=== PATIENT | female | born 1985 ===

== ENCOUNTER 2022-07-25 05:10 | Emergency (ER) | payer OTHER, SELFPAY ==
[2022-07-25 05:33] VITALS: BP 137/86; PULSE 83; RESP 18; TEMP 37.1; O2SAT 98; BMI 38.4
--- NOTE | 2022-07-25 08:05 | ED.GENADULT ---
HPI - General Adult General Chief complaint: General Medical Stated complaint: pressure in ears, hard to swallow, headache Time Seen by Provider: 07/25/22 08:05 Source: patient Mode of arrival: ambulatory Limitations: no limitations History of Present Illness HPI narrative: Patient is a 36 year old female presenting to the emergency department today with sinus pressure and a cough. Patient states that for the last week, she has felt generally unwell including sinus pressure and a cough. Patient denies any dizziness, lightheadedness, abdominal pain, nausea, vomiting, fever, chills, blurry vision, double vision, loss of vision, chest pain, difficulty breathing, shortness of breath, back pain, night sweats, pain with urination, increased urinary frequency, increased urinary urgency, blood in her urine or stool, syncope or a near syncopal episode, recent trauma or falls, bowel incontinence, bladder incontinence, bowel retention, bladder retention, or any other complaints at this time. Onset (ago): week(s) (1) Severity: mild Severity scale (1-10): 2 Relieving factors: none Exacerbating factors: none Associated symptoms: cough Treatments prior to arrival: none Related Data Previous Rx's Medication Instructions Recorded albuterol sulfate 90 mcg/actuation 1 inh inhalation Q6H PRN shortness 07/25/22 aerosol inhaler of breath or wheezing #6.7 grams doxycycline hyclate 100 mg tablet 100 mg PO BID 7 days #14 tabs 07/25/22 prednisone 20 mg tablet 20 mg PO DAILY 12 days #26 tabs 07/25/22 Allergies Allergy/AdvReac Type Severity Reaction Status Date / Time acetaminophen Allergy Unknown Verified 07/25/22 05:36 [From Excedrin Extra Strength] aspirin Allergy Unknown Verified 07/25/22 05:36 [From Excedrin Extra Strength] caffeine Allergy Unknown Verified 07/25/22 05:36 [From Excedrin Extra Strength] ibuprofen Allergy Unknown Verified 07/25/22 05:36 Review of Systems Constitutional: Constitutional: Reports no additional constitutional complaints, Denies chills, Denies fever(s) and Denies night sweats Eyes: Eyes: Reports no additional eye complaints, Denies blurry vision, Denies change in vision, Denies diplopia, Denies eye discharge, Denies loss of vision and Denies eye pain ENT: Denies dizziness and Reports sinus pressure Cardiovascular: Cardiovascular: Reports no additional cardiovascular complaints, Denies chest pain, Denies lightheadedness, Denies Loss of Consciousness and Denies dyspnea Respiratory: Respiratory: Reports no additional respiratory complaints, Reports cough and Denies dyspnea Gastrointestinal: Gastrointestinal: Reports no additional gastrointestinal complaints, Denies abdominal pain, Denies melena, Denies hematochezia, Denies change in bowel habits and Denies change in stool character Genitourinary: Genitourinary: Denies hematuria, Denies urinary frequency, Denies dysuria, Denies urinary incontinence, Denies urinary hesitancy and Denies urinary urgency Musculoskeletal: Musculoskeletal: Reports no additional musculoskeletal complaints, Denies numbness and Denies tingling Neurologic: Denies dizziness, Denies loss of vision, Denies numbness and Denies tingling Psychiatric: Psychiatric: Reports no additional psychiatric complaints Endocrine: Endocrine: Reports no additional endocrine complaints Hematologic/Lymphatic: Hematologic/Lymphatic: Reports no additional hematologic/lymphatic complaints Allergic/Immunologic: Allergic/Immunologic: Reports no additional allergic/immunologic complaints [facility] Past Medical History Attestation statement: The following information was validated with the patient. Source: old records reviewed Social History Social History Advance Directives: No Physical Exam ED Vital Signs: Vital Signs - 24 hr 07/25/22 05:33 Temperature 98.7 F Pulse Rate 83 Respiratory Rate 18 Blood Pressure 137/86 Pulse Oximetry 98 Oxygen Delivery Method Room Air BMI result Body Mass Index 38.4 Const General: cooperative, no acute distress, alert and awake Nutritional Appearance: well nourished Orientation/consciousness: patient oriented x3 Limitations: no limitations [facility] Head: Yes normal to inspection and Yes atraumatic Ears: hearing grossly normal bilaterally, external ears normal, TM normal on the right and TM normal on the left General nose exam: Normal external nose present, no nasal discharge noted and no epistaxis Face and sinus: Yes normal facial exam, No abrasion and No laceration Mouth: Normal oral and palatal mucosa present, no drooling and no muffled voice Eyes General: appearance normal, both eyes and all related structures Periorbital: periorbital findings normal Eyelids: Yes eyelids normal Conjunctivae: conjunctivae normal Pupils: Equal, round and reactive pupils present EOM: EOMs intact bilaterally Neck Neck: Yes normal visual inspection, Yes full ROM and Yes no lymphadenopathy Chest Chest palpation & inspection: normal inspection of the chest Resp Effort & Inspection: normal respiratory effort and able to speak in complete sentences Auscultation: clear to auscultation bilaterally Cardio Rate: regular rate Rhythm: regular rhythm GI Inspection: Yes normal to inspection Neuro General: patient oriented x3 and moves all extremities Cranial nerves: Yes Equal, round and reactive pupils present Cognition (Neuro): normal cognition Motor exam (neuro): 5/5 motor strength present throughout Sensory Exam: Normal double simultaneous stimulation for sensation Coordination: [id number] test normal Extrem General: Yes normal to inspection, Yes full ROM and Yes capillary refill normal Psych Appearance: grossly normal Mental Status: mental status grossly normal Affect: normal affect Attitude: cooperative Thought process: Normal thought process present Thought content: Normal thought content present Insight: Good insight present (Psych) Medical Decision Making MDM Narrative Medical decision making narrative: Patient is a 36 year old female presenting to the emergency department today with sinus pressure and cough. Patient's physical exam was unremarkable. I explained my physical exam findings to the patient. I answered all questions asked by the patient. I stressed the importance of the patient taking her medication as prescribed. I stressed the importance of the patient following up with her primary care provider. I stressed the importance of the patient returning to the emergency department immediately if her symptoms were to worsen or if she were to develop any dizziness, shortness of breath, difficulty breathing, chest pain, blurry vision, loss of vision, nausea, vomiting, abdominal pain, fever, chills, back pain, or any other complaints. Patient verbalized agreement and understanding with this treatment plan and discharge. Differential Diagnosis Differential Diagnosis: sinusitis Medical Records Medical records reviewed: Yes I reviewed the patient's medical records. Discharge Plan Discharge Clinical Impression: Sinusitis Patient Disposition: Home, Self-Care Instructions: Sinusitis (ED) Additional Instructions: Follow up with your primary care provider. Return to the emergency department immediately if your symptoms worsen or if you develop any dizziness, shortness of breath, difficulty breathing, chest pain, blurry vision, loss of vision, nausea, vomiting, abdominal pain, fever, chills, back pain, or any other complaints. Prescriptions: New doxycycline hyclate 100 mg tablet 100 mg PO BID 7 Days Qty: 14 0RF albuterol sulfate 90 mcg/actuation HFA aerosol inhaler 1 inh inhalation Q6H PRN (Reason: shortness of breath or wheezing) Qty: 6.7 0RF prednisone 20 mg tablet 20 mg PO DAILY 12 Days Qty: 26 0RF Rx Instructions: Take 3 tablets for 5 days THEN; Take 2 tablets for 4 days THEN; Take 1 tablet for 3 days Referrals: [facility] [Provider Group] (Call to establish and follow up with a primary care provider. If you already have a primary care provider, please follow up with them. ) [facility] [Provider Group] (Call to establish and follow up with a primary care provider. If you already have a primary care provider, please follow up with them. ) [facility] [Provider Group] (Call to establish and follow up with a primary care provider. If you already have a primary care provider, please follow up with them. ) Stand Alone Forms: Work/School Release Interventions: ED Discharge Assessment Last Done: 07/25/22 08:46 Discharge Date/Time: 07/25/22 08:47 Print Language: Ugandan
--- NOTE | 2022-07-25 08:45 | PC.NURSE ---
PT AMBULATORY INTO [facility] PT AWAKE, ALERT AND ORIENTED X 3. SKIN WARM AND DRY. RESP UNLABORED. SPEAKING IN FULL CLEAR SENTENCES. DENIES N/V. EVALUATED BY PROVIDER BHUMIKA. PLAN IS FOR DC HOME WITH MEDICATIONS. PT AWARE AND AGREEABLE TO PLAN
== END 2022-07-25 08:47 | disposition home or self-care (01) ==
PROVIDERS: Emergency Provider Emergency Medicine
DX: J32.9 Chronic sinusitis, unspecified (principal); R05.9 Cough, unspecified; Z79.899 Other long term (current) drug therapy
CPT/HCPCS: 99282; 99283

== ENCOUNTER 2022-09-18 01:21 | Emergency (ER) | payer OTHER, SELFPAY ==
[2022-09-18 01:30] VITALS: BP 117/80; PULSE 69; RESP 16; TEMP 36.6; O2SAT 98; BMI 38.4
--- NOTE | 2022-09-18 06:06 | ED.EXTPRO ---
HPI - Extremity Problem General Chief complaint: Extremity Problem Stated complaint: right ring finger pain Time Seen by Provider: 09/18/22 04:21 Source: patient Mode of arrival: ambulatory History of Present Illness HPI Narrative: 36-year-old female presents with worsening pain, redness, swelling to the right ring finger her hand this atraumatic. Related Data Previous Rx's Medication Instructions Recorded albuterol sulfate 90 mcg/actuation 1 inh inhalation Q6H PRN shortness 07/25/22 aerosol inhaler of breath or wheezing #6.7 grams doxycycline hyclate 100 mg tablet 100 mg PO BID 7 days #14 tabs 07/25/22 prednisone 20 mg tablet 20 mg PO DAILY 12 days #26 tabs 07/25/22 Allergies Allergy/AdvReac Type Severity Reaction Status Date / Time acetaminophen Allergy Swelling Verified 09/18/22 01:30 [From Excedrin Migraine] aspirin Allergy Swelling Verified 09/18/22 01:30 [From Excedrin Migraine] caffeine Allergy Swelling Verified 09/18/22 01:30 [From Excedrin Migraine] ibuprofen Allergy Swelling Verified 09/18/22 04:23 Review of Systems Review of Systems: Pertinent positives and negatives as stated in HPI 10 point review of systems is otherwise negative. PMFSH Past Medical History Source: nursing notes reviewed Social History Social History Advance Directives: No Physical Exam Vital Signs: Vital Signs: Last Vital Signs Temp 97.9 F 09/18/22 01:30 Pulse 69 09/18/22 01:30 Resp 16 09/18/22 01:30 BP 117/80 09/18/22 01:30 Pulse Ox 98 09/18/22 01:30 O2 Del Method 09/18/22 01:30 BMI result Body Mass Index 38.4 VITAL SIGNS: Reviewed. GENERAL: Well developed, well nourished, in no acute distress. HEAD: Normocephalic/atraumatic EYES: PERRLA, EOMI EARS: Ext canals without abnormality OROPHARYNX: no oral lesions noted, posterior pharynx clear LUNGS: Normal breath sounds. No adventitious sounds or accessory muscle use. SpO2<98> CARDIOVASCULAR: Regular rate and rhythm without noted murmurs ABDOMEN: Soft, non-tender, non-distended with bowel sounds. MUSCULOSKELETAL: No tenderness, deformities, or effusions noted on gross inspection. EXTREMITIES: No cyanosis, clubbing or edema; RIGHT RING FINGER: Swelling and redness around the nail bed SKIN: Inspection of the skin reveals no rashes NEUROLOGIC: Alert and oriented x 4. Strength and sensation to light touch were grossly intact x 4. Course Course Course Narrative: 36-year-old female with history and clinical presentation consistent with paronychia of the right ring finger. Incision and drainage completed with good expression purulence substance. Patient was then discharged home in stable condition with instructions to use Epsom salts twice a day for the next 2-3 days. Procedures Abscess I/D Site: upper extremity Side (if applicable): right Local Anesthetic: lidocaine 1% Amount of anesthesia used (mL): 6 Technique: incised with blade Amount of fluid expressed (mL): 1 Sent for culture/gram staining?: No Irrigation: No Packing used?: none Complications: pain Discharge Plan Discharge Clinical Impression: Paronychia Patient Disposition: Home, Self-Care Instructions: Paronychia (ED) Additional Instructions: 1. Recommend [id number] Tylenol/ibuprofen as needed for pain control. 2. Recommend soaking your finger in Epsom salt with warm water twice daily for the next 2-3 days. 3. Follow-up with your primary care provider for re-evaluation. Return to the ER for worsening symptoms. Prescriptions: No Action doxycycline hyclate 100 mg tablet 100 mg PO BID 7 Days Qty: 14 0RF albuterol sulfate 90 mcg/actuation HFA aerosol inhaler 1 inh inhalation Q6H PRN (Reason: shortness of breath or wheezing) Qty: 6.7 0RF prednisone 20 mg tablet 20 mg PO DAILY 12 Days Qty: 26 0RF Rx Instructions: Take 3 tablets for 5 days THEN; Take 2 tablets for 4 days THEN; Take 1 tablet for 3 days
[2022-09-18] MEDS: Lidocaine HCl 2 % MPF 5 ML VIAL SUBCUT (06:30)
== END 2022-09-18 06:33 | disposition home or self-care (01) ==
PROVIDERS: Emergency Provider Student in an Organized Health Care Education/Training Program
DX: L03.011 Cellulitis of right finger (principal); M79.644 Pain in right finger(s)
CPT/HCPCS: 10060; 99282; 99284

== ENCOUNTER 2023-04-05 17:14 | Emergency (ER) | payer OTHER, SELFPAY ==
[2023-04-05 19:33] VITALS: BP 154/91; PULSE 79; RESP 16; TEMP 36.4; O2SAT 100; BMI 38.4
--- NOTE | 2023-04-05 19:35 | ED.GENADULT ---
HPI - General Adult General Chief complaint: General Medical Stated complaint: numbness,rafiq right arm Time Seen by Provider: 04/05/23 22:15 Source: patient Mode of arrival: ambulatory Limitations: no limitations History of Present Illness HPI narrative: Patient with history of hypothyroidism used to be on 100 mcg on levothyroxine but her PCP decrease the dose to 70 mcgincreased to 88 Mcg last week now complaining of tingling sensation numbness weakness last few days no dizziness no chest pain or shortness of breath no syncope, feels anxious no weight gain or constipation Related Data Previous Rx's Medication Instructions Recorded albuterol sulfate 90 mcg/actuation 1 inh inhalation Q6H PRN shortness 07/25/22 aerosol inhaler of breath or wheezing #6.7 grams doxycycline hyclate 100 mg tablet 100 mg PO BID 7 days #14 tabs 07/25/22 prednisone 20 mg tablet 20 mg PO DAILY 12 days #26 tabs 07/25/22 levothyroxine 100 mcg capsule 100 mcg PO DAILY #90 caps 04/05/23 Allergies Allergy/AdvReac Type Severity Reaction Status Date / Time acetaminophen Allergy Swelling Verified 04/05/23 19:40 [From Excedrin Migraine] aspirin Allergy Swelling Verified 04/05/23 19:40 [From Excedrin Migraine] caffeine Allergy Swelling Verified 04/05/23 19:40 [From Excedrin Migraine] ibuprofen Allergy Swelling Verified 04/05/23 19:40 Review of Systems Review of Systems: Yes all other systems are reviewed and are negative [facility] Social History Social History Alcohol intake: never Smoked in Last 30 Days: No Use of substances other than those prescribed or required for medical reasons: No Advance Directives: No Advance Directives Information Provided: No Patient : No Physical Exam ED Vital Signs: Vital Signs - 24 hr 04/05/23 19:33 Temperature 97.6 F Pulse Rate 79 Respiratory Rate 16 Blood Pressure 154/91 H Pulse Oximetry 100 Oxygen Delivery Method Room Air BMI result Body Mass Index 38.4 Appearance: Alert. Oriented X3. No acute distress. Eyes: PERRLA, No Nystagmus ENT: Pharynx normal. Oral Mucosa moist Neck: Normal inspection. Neck supple. Thyroid not palpable CVS: Normal heart rate and rhythm. Pulses normal. Respiratory: No respiratory distress. Equal air entry bilateral, no wheezing/rales/rhonchi Abdomen: Soft and nontender. Bowel sounds are present, no mass palpable, no CVA tenderness Skin: Skin warm and dry. Normal skin color. Normal skin turgor. Extremities: No lower extremity edema. No calf tenderness Neuro: Oriented X 3. No motor deficit. No sensory deficit.No cerebellar signs , cranial nerves II-XII intact Course Course Course Narrative: This is an RME: Additional HPI, ROS, PE not included below will be deferred to primary provider. This is a [id number]-[id number]-female, with a history of hypothyroidism, presenting to the emergency department with a complaint of numbness in her toes in her right foot x 2 days and right arm numbness/tingling since today. No trauma or injury. States that the numbness and tingling down her right arm is intermittent. Recent increase in levothyroxine last week from 70mcg to 88mcg QD.No dizziness, chest pain, shortness of breath, abdominal pain, nausea, vomiting or diarrhea. Plan: Labs ordered. Medical Decision Making Medical Decision Making [facility] Narrative: Patient with hypothyroidism with elevated TSH and low FT 4 will increase the dose of levothyroxine to 100 mcg which patient used to take in the past advised to follow with PCP/endocrinology Lab Data MDM Lab Attestation statement: I reviewed the patient's lab results. 04/05/23 20:17 04/05/23 20:17 Labs: Lab Results 04/05/23 04/05/23 Range/Units 20:17 20:17 WBC 12.9 H (4.8-10.8) X10*3/uL RBC 4.57 (4.20-5.50) X10*6/uL Hgb 13.0 (12.0-16.0) g/dl Hct 40.3 (37.0-47.0) % MCV 88.2 (80.0-98.0) fL MCH 28.4 (27.0-33.0) pg MCHC 32.3 (31.0-35.0) g/dl RDW 15.9 (11.0-16.0) % Plt Count 344 (160-400) X10*3/uL MPV 9.1 L (9.4-12.3) fL Immature Gran % (Auto) 0.5 H (0.0-0.4) % Neut % (Auto) 63.6 (45-73) % Lymph % (Auto) 26.4 (20-40) % [place] % (Auto) 6.1 (2-11) % Eos % (Auto) 3.2 (0-4) % Baso % (Auto) 0.2 (0-2) % Lymph # (Auto) 3.4 (1.2-4.9) X10*3/uL [place] # (Auto) 0.8 (0.1-1.2) X10*3/uL Eos # (Auto) 0.4 (0.0-0.4) X10*3/uL Baso # (Auto) 0.0 (0.0-0.2) X10*3/uL Abs Immat Gran (auto) 0.07 H (0.00-0.03) X10*3/uL Absolute Neuts (auto) 8.2 (2.0-8.3) x10*3/uL Absolute Nucleated RBC 0.000 (0.0-0.012) X10*3/uL Nucleated RBC % (auto) 0.0 (0.0-0.2) /100WBC Sodium 139 (135-145) mmol/L Potassium 3.6 (3.3-5.1) mmol/L Chloride 103 (96-108) mmol/L Carbon Dioxide 28 (22-29) mmol/L Anion Gap 12 (12-20) BUN 13 (9-16) mg/dL Creatinine 0.74 (0.5-1.4) mg/dL Estim Creat Clear Calc 111.9 Estimated GFR > 60 Random Glucose 117 H (60-115) mg/dL Calcium 9.8 (8.4-10.2) mg/dL Magnesium 1.8 (1.6-2.6) mg/dL Total Bilirubin 0.2 (0.0-1.0) mg/dL Direct Bilirubin < 0.2 (0.0-0.5) mg/dL AST 13 (5-31) U/L ALT 12 (0-31) U/L Alkaline Phosphatase 61 (39-117) U/L Total Protein 7.3 (6.5-8.0) g/dL Albumin 4.2 (3.5-5.0) g/dL Lipase 20 (8-78) U/L TSH 33.55 H (0.32-4.0) uIU/mL Free T4 0.64 L (0.71-1.85) ng/dL Discharge Plan Discharge Clinical Impression: Paresthesia, Hypothyroidism Patient Disposition: Home, Self-Care Instructions: Hypothyroidism (ED), Paresthesia (ED) Additional Instructions: Continue your medications Cause of numbness is not clear Increase the dose of levothyroxine 100 mcg as your taking before and follow-up with senior process engineer/PCP Follow up with neurologist Prescriptions: New levothyroxine 100 mcg capsule 100 mcg PO DAILY Qty: 90 0RF No Action doxycycline hyclate 100 mg tablet 100 mg PO BID 7 Days Qty: 14 0RF albuterol sulfate 90 mcg/actuation HFA aerosol inhaler 1 inh inhalation Q6H PRN (Reason: shortness of breath or wheezing) Qty: 6.7 0RF prednisone 20 mg tablet 20 mg PO DAILY 12 Days Qty: 26 0RF Rx Instructions: Take 3 tablets for 5 days THEN; Take 2 tablets for 4 days THEN; Take 1 tablet for 3 days Referrals: Hugo Moya MD [Physician] - 1 week Interventions: ED Discharge Assessment Last Done: 04/05/23 22:49 Discharge Date/Time: 04/05/23 22:52
[2023-04-05 20:00] VITALS: O2SAT 100
[2023-04-05 20:21] LABS: MANUAL DIFF FLAG NO
[2023-04-05 20:23] LABS: Basophils Percent Auto 0.2 % (0-2); Eosinophils Absolute Auto 0.4 X10*3/uL (0.0-0.4); Eosinophils Percent Auto 3.2 % (0-4); Hematocrit 40.3 % (37.0-47.0); Imm Gran Abs Auto 0.07 X10*3/uL (0.00-0.03); Imm Gran Pct Auto 0.5 % (0.0-0.4); Lymphocytes Absolute Auto 3.4 X10*3/uL (1.2-4.9); Lymphocytes Percent Auto 26.4 % (20-40); Mean Corpuscular HGB Conc 32.3 g/dl (31.0-35.0); Mean Corpuscular Hemoglobin 28.4 pg (27.0-33.0); Mean Corpuscular Volume 88.2 fL (80.0-98.0); Mean Platelet Volume 9.1 fL (9.4-12.3); Monocytes Absolute Auto 0.8 X10*3/uL (0.1-1.2); Monocytes Percent Auto 6.1 % (2-11); Neutrophils Absolute Auto 8.2 x10*3/uL (2.0-8.3); Neutrophils Percent Auto 63.6 % (45-73); Platelet Count 344 X10*3/uL (160-400); Red Blood Count 4.57 X10*6/uL (4.20-5.50); Red Cell Distribution Width 15.9 % (11.0-16.0); White Blood Count 12.9 X10*3/uL (4.8-10.8)
[2023-04-05 20:51] LABS: Alanine Aminotransferase 12 U/L (0-31); Albumin Level 4.2 g/dL (3.5-5.0); Alkaline Phosphatase 61 U/L (39-117); Anion Gap 12 (12-20); Aspartate Amino Transferase 13 U/L (5-31); Bilirubin Direct < 0.2 mg/dL (0.0-0.5); Bilirubin Total 0.2 mg/dL (0.0-1.0); Blood Urea Nitrogen 13 mg/dL (9-16); Calcium 9.8 mg/dL (8.4-10.2); Carbon Dioxide 28 mmol/L (22-29); Chloride 103 mmol/L (96-108); Creatinine Clr Calc Pharmacy 111.9; Estimated Glomerular Filt Rate > 60; Glucose Random 117 mg/dL (60-115); Lipase 20 U/L (8-78); Magnesium 1.8 mg/dL (1.6-2.6); Potassium 3.6 mmol/L (3.3-5.1); Sodium 139 mmol/L (135-145); Total Protein 7.3 g/dL (6.5-8.0)
[2023-04-05 21:06] LABS: TSH reflex Free T4 33.55 uIU/mL (0.32-4.0)
[2023-04-05 21:36] LABS: Free T4 (Free Thyroxine) 0.64 ng/dL (0.71-1.85)
== END 2023-04-05 22:52 | disposition home or self-care (01) ==
PROVIDERS: Physician Assistant Medical; Emergency Provider Internal Medicine
DX: R20.2 Paresthesia of skin (principal); E03.9 Hypothyroidism, unspecified; Z79.899 Other long term (current) drug therapy
CPT/HCPCS: 36415; 80048; 80076; 83690; 83735; 84439; 84443; 85025; 99283; 99284

== ENCOUNTER 2024-08-13 10:00 | Emergency (ER) | payer OTHER, SELFPAY ==
[2024-08-13 10:09] VITALS: BP 117/77; PULSE 80; RESP 16; TEMP 37; O2SAT 97; BMI 40.6
[2024-08-13 10:37] LABS: MANUAL DIFF FLAG NO
[2024-08-13 10:39] LABS: Basophils Percent Auto 0.3 % (0-2); Eosinophils Absolute Auto 0.4 X10*3/uL (0.0-0.4); Eosinophils Percent Auto 3.2 % (0-4); Hematocrit 38.9 % (37.0-47.0); Hemoglobin 12.5 g/dl (12.0-16.0); Imm Gran Abs Auto 0.06 X10*3/uL (0.00-0.03); Imm Gran Pct Auto 0.5 % (0.0-0.4); Lymphocytes Absolute Auto 2.8 X10*3/uL (1.2-4.9); Lymphocytes Percent Auto 22.7 % (20-40); Mean Corpuscular HGB Conc 32.1 g/dl (31.0-35.0); Mean Corpuscular Hemoglobin 28.3 pg (27.0-33.0); Mean Platelet Volume 9.1 fL (9.4-12.3); Monocytes Absolute Auto 0.7 X10*3/uL (0.1-1.2); Monocytes Percent Auto 5.5 % (2-11); Neutrophils Absolute Auto 8.4 x10*3/uL (2.0-8.3); Neutrophils Percent Auto 67.8 % (45-73); Platelet Count 373 X10*3/uL (160-400); Red Blood Count 4.42 X10*6/uL (4.20-5.50); Red Cell Distribution Width 16.8 % (11.0-16.0); White Blood Count 12.4 X10*3/uL (4.8-10.8)
[2024-08-13 11:07] LABS: Anion Gap 10 (12-20); Blood Urea Nitrogen 15 mg/dL (9-16); Calcium 9.5 mg/dL (8.4-10.2); Carbon Dioxide 22 mmol/L (22-29); Chloride 110 mmol/L (96-108); Creatinine Clr Calc Pharmacy 107.1; Estimated Glomerular Filt Rate > 60; Glucose Random 124 mg/dL (60-115); Sodium 138 mmol/L (135-145)
[2024-08-13 11:23] LABS: TSH reflex Free T4 39.02 uIU/mL (0.32-4.0)
[2024-08-13 11:24] LABS: Thyroid Stimulating Hormone 39.35 uIU/mL (0.32-4.0)
[2024-08-13 12:17] LABS: Free T4 (Free Thyroxine) 0.44 ng/dL (0.71-1.85)
--- NOTE | 2024-08-13 13:04 | ED.GENADULT ---
HPI - General Adult General Chief complaint: General Medical Stated complaint: thyroid problem Time Seen by Provider: 08/13/24 13:01 Source: patient Mode of arrival: ambulatory Limitations: no limitations History of Present Illness ED Provider: Ab VALENTINE HPI narrative: 38-year-old female with history of hypothyroidism presents to the ED because she has been without her Synthroid medication for 5 months due to insurance issues. Patient has appointment with primary care provider next week. Patient states fatigue and feeling cold. Patient denies any chest pain or shortness of breath, abdominal pain, diarrhea, dizziness, slurred speech, facial droop, neck pain, or genitourinary symptoms. Related Data Previous Rx's ?Medication ?Instructions ?Recorded albuterol sulfate 90 mcg/actuation 1 inh inhalation Q6H PRN shortness 07/25/22 aerosol inhaler of breath or wheezing #6.7 grams doxycycline hyclate 100 mg tablet 100 mg PO BID 7 days #14 tabs 07/25/22 prednisone 20 mg tablet 20 mg PO DAILY 12 days #26 tabs 07/25/22 levothyroxine 100 mcg capsule 100 mcg PO DAILY #90 caps 04/05/23 levothyroxine 100 mcg tablet 100 mcg PO DAILY 30 days #30 tabs 08/13/24 (Synthroid) Allergies Allergy/AdvReac Type Severity Reaction Status Date / Time acetaminophen Allergy Swelling Verified 08/13/24 10:11 [From Excedrin Migraine] aspirin Allergy Swelling Verified 08/13/24 10:11 [From Excedrin Migraine] caffeine Allergy Swelling Verified 08/13/24 10:11 [From Excedrin Migraine] ibuprofen Allergy Swelling Verified 08/13/24 10:11 Review of Systems Review of Systems: fatigue Yes all other systems are reviewed and are negative [facility] Social History Social History Alcohol intake: never Advance Directives: No Physical Exam ED Vital Signs: Vital Signs - 24 hr 08/13/24 10:09 Temperature 98.6 F Pulse Rate 80 Respiratory Rate 16 Blood Pressure 117/77 Pulse Oximetry 97 Oxygen Delivery Method Room Air BMI result Body Mass Index 40.6 Const General: cooperative, healthy appearing, comfortable, no acute distress, well developed, alert, awake and Physically active Orientation/consciousness: patient oriented x3 HENMT Head: Yes normal to inspection, Yes No palpable skull fracture present, Yes normocephalic, Yes atraumatic and No abrasion Throat: Yes posterior oropharynx normal, Yes tonsils normal and Yes uvula midline Eyes General: appearance normal, both eyes and all related structures Neck Neck: Yes normal visual inspection, Yes full ROM, Yes no lymphadenopathy, Yes no meningeal signs, Yes trachea midline, Yes supple, No anterior neck swelling and No tender Chest Chest palpation & inspection: normal inspection of the chest and normal palpation of entire chest wall Resp Effort & Inspection: normal respiratory effort and able to speak in complete sentences Auscultation: clear to auscultation bilaterally Cardio Jugular venous distension: no JVD Heart sounds: S1 normal heart sound present and S2 normal heart sound present GI Inspection: Yes normal to inspection Palpation (GI): Soft to palpation, not firm, nontender, no guarding and not rigid General: Yes no CVA tenderness Back/Spine/Pelvis Back: no CVA tenderness and No back tenderness Skin General skin exam: no rashes or lesions noted, elasticity normal and turgor normal Neuro General: patient oriented x3, gait normal, tone normal, moves all extremities, Normal light touch and pain sensation, no meningeal signs, no focal motor deficits, CN's II-XI intact bilaterally and normal sensation to monofilament Extrem General: Yes normal to inspection, Yes full ROM and Yes capillary refill normal Psych Appearance: grossly normal, well kempt and not disheveled Medical Decision Making Medical Decision Making MDM Narrative: 38-year-old female presents to ED for requesting Synthroid medication for hypothyroidism. Patient has been without it for 5 months due to insurance issues. Patient states feeling fatigued which is contributed to hypothyroidism. Labs indicates hypothyroidism which can lead to fatigue. Rest of labs are normal. Patient well-appearing. Physical exam benign. Patient was prescribed Synthroid and given copy of lab work. Patient has follow-up with primary care provider next week. Patient has explaiend worrisome signs and informed to return to the ED immediately. Not suspecting stroke. NIH score of 0. Not suspecting myocardial infarction, PE, sepsis, pericarditis, rhabdomyolysis, dehydration, WILLIAM, DKA, or . Not suspecting any life-threatening etiology. Differential Diagnosis Differential Diagnoses: The differential diagnosis associated with the presentation includes (Hypothyroidism, anemia) Admission/Observation Consideration of admission/observation: Escalation of care including admission/observation considered Lab Data MDM Lab Attestation statement: I reviewed the patient's lab results. 08/13/24 10:32 08/13/24 10:32 Labs: Lab Results 08/13/24 08/13/24 Range/Units 10:32 10:32 WBC 12.4 H (4.8-10.8) X10*3/uL RBC 4.42 (4.20-5.50) X10*6/uL Hgb 12.5 (12.0-16.0) g/dl Hct 38.9 (37.0-47.0) % MCV 88.0 (80.0-98.0) fL MCH 28.3 (27.0-33.0) pg MCHC 32.1 (31.0-35.0) g/dl RDW 16.8 H (11.0-16.0) % Plt Count 373 (160-400) X10*3/uL MPV 9.1 L (9.4-12.3) fL Immature Gran % (Auto) 0.5 H (0.0-0.4) % Neut % (Auto) 67.8 (45-73) % Lymph % (Auto) 22.7 (20-40) % [place] % (Auto) 5.5 (2-11) % Eos % (Auto) 3.2 (0-4) % Baso % (Auto) 0.3 (0-2) % Lymph # (Auto) 2.8 (1.2-4.9) X10*3/uL [place] # (Auto) 0.7 (0.1-1.2) X10*3/uL Eos # (Auto) 0.4 (0.0-0.4) X10*3/uL Baso # (Auto) 0.0 (0.0-0.2) X10*3/uL Abs Immat Gran (auto) 0.06 H (0.00-0.03) X10*3/uL Absolute Neuts (auto) 8.4 H (2.0-8.3) x10*3/uL Absolute Nucleated RBC 0.000 (0.0-0.012) X10*3/uL Nucleated RBC % (auto) 0.0 (0.0-0.2) /100WBC Sodium 138 (135-145) mmol/L Potassium 4.0 (3.3-5.1) mmol/L Chloride 110 H (96-108) mmol/L Carbon Dioxide 22 (22-29) mmol/L Anion Gap 10 L (12-20) BUN 15 (9-16) mg/dL Creatinine 0.79 (0.5-1.4) mg/dL Estim Creat Clear Calc 107.1 Estimated GFR > 60 Random Glucose 124 H (60-115) mg/dL Calcium 9.5 (8.4-10.2) mg/dL TSH 39.35 H 39.02 H (0.32-4.0) uIU/mL Free T4 0.44 L (0.71-1.85) ng/dL Beta HCG, Quant < 2 mIU/mL Independent Historian Clinical information obtained from an independent historian. History obtained from or confirmed by: Other (Prior vistis) External Record Review External record reviewed: Other (Patient) Prescription Management I considered prescription management with: Other (Synthroid) Discharge Plan Discharge Clinical Impression: Hypothyroidism Patient Disposition: Home, Self-Care Instructions: Hypothyroidism (ED) Additional Instructions: Recommend follow-up with primary care provider. Call your primary care provider for earlier appointment. Return to the ED immediately for any abdominal pain, nausea, vomiting, fever, chills, lethargy, chest pain, shortness of breath, or any other concerning symptoms. Test Result Flag Reference Sodium 138 135-145 mmol/L Potassium 4.0 3.3-5.1 mmol/L CL 110 H 96-108 mmol/L CO2 22 22-29 mmol/L Gap 10 L 12-20 BUN 15 9-16 mg/dL Creat 0.79 0.5-1.4 mg/dL Estimated CrCl 107.1 Provided height and weight: 157.48 cm, 100.6 kg. eGFR (calculated from the MDRD study equation) and eCrCl (calculated from the Cockcroft-Gault equation) are based on different parameters and may not yield comparable results. If eCrCl result is absurd, please check patient's height/weight. EGFR > 60 NOTE: For -[place] Citizen individuals, multiply the result by 1.210. Chronic Kidney Disease: Estimated GFR < 60 mL/min/1.73m2 Severe Kidney Disease: Estimated GFR < 15 mL/min/1.73m2 Glucose, Random 124 H 60-115 mg/dL CA 9.5 8.4-10.2 mg/dL TSH 3rd Gen. 39.35 H 0.32-4.0 uIU/mL Note: A sustained TSH level above 2.5 uIU/mL may warrant further investigation. TSH 3rd Generation ([facility]) Test Result Flag Reference WBC 12.4 H 4.8-10.8 X10*3/uL RBC 4.42 4.20-5.50 X10*6/uL HGB 12.5 12.0-16.0 g/dl HCT 38.9 37.0-47.0 % MCV 88.0 80.0-98.0 fL MCH 28.3 27.0-33.0 pg MCHC 32.1 31.0-35.0 g/dl RDW 16.8 H 11.0-16.0 % PLT 373 160-400 X10*3/uL MPV 9.1 L 9.4-12.3 fL Neut Pct Auto 67.8 45-73 % ImGran Pct Auto 0.5 H 0.0-0.4 % Lymp Pct Auto 22.7 20-40 % [place] Pct Auto 5.5 2-11 % Eos Pct Auto 3.2 0-4 % Baso Pct Auto 0.3 0-2 % NRBC Pct Auto 0.0 0.0-0.2 /100WBC ANC Neut Abs # 8.4 H 2.0-8.3 x10*3/uL ImGran Abs Auto 0.06 H 0.00-0.03 X10*3/uL Lymph Abs Auto 2.8 1.2-4.9 X10*3/uL [place] Abs Auto 0.7 0.1-1.2 X10*3/uL Eos Abs Auto 0.4 0.0-0.4 X10*3/uL Baso Abs Auto 0.0 0.0-0.2 X10*3/uL NRBC Abs Auto 0.000 0.0-0.012 X10*3/uL END OF REPORT Prescriptions: New levothyroxine [Synthroid] 100 mcg tablet 100 mcg PO DAILY 30 Days Qty: 30 0RF No Action doxycycline hyclate 100 mg tablet 100 mg PO BID 7 Days Qty: 14 0RF albuterol sulfate 90 mcg/actuation HFA aerosol inhaler 1 inh inhalation Q6H PRN (Reason: shortness of breath or wheezing) Qty: 6.7 0RF prednisone 20 mg tablet 20 mg PO DAILY 12 Days Qty: 26 0RF Rx Instructions: Take 3 tablets for 5 days THEN; Take 2 tablets for 4 days THEN; Take 1 tablet for 3 days levothyroxine 100 mcg capsule 100 mcg PO DAILY Qty: 90 0RF Discharge Date/Time: 08/13/24 13:32 Print Language: Palauan
[2024-08-13 13:30] LABS: HCG Quantitative < 2 mIU/mL
[2024-08-15 03:23] LABS: Triiodothyronine T3 Total 63 ng/dL (76-181)
== END 2024-08-13 13:32 | disposition home or self-care (01) ==
PROVIDERS: Physician Assistant; Emergency Provider Emergency Medicine
DX: E03.9 Hypothyroidism, unspecified (principal)
CPT/HCPCS: 36415; 80048; 84439; 84443; 84480; 84702; 85025; 99281; 99283

== ENCOUNTER 2024-08-21 10:48 | Outpatient (AMB) | payer MEDICAID, SELFPAY ==
--- NOTE | 2024-08-21 11:42 | A.OFFPC_ITS ---
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 Both ears are clogged. Chest tightness the past two days. Design Editor Required: No Allergies acetaminophen [From Excedrin Migraine] Allergy (Verified 08/21/24 11:43) Swelling aspirin [From Excedrin Migraine] Allergy (Verified 08/21/24 11:43) Swelling caffeine [From Excedrin Migraine] Allergy (Verified 08/21/24 11:43) Swelling ibuprofen Allergy (Verified 08/21/24 11:43) Swelling Medication List - Last Reconciled 08/21/24 by Yuliya Foy PA-C albuterol sulfate 90 mcg/actuation 1 inh inhalation Q6H PRN levothyroxine (Synthroid) 100 mcg PO DAILY 30 days Tobacco use date assessed: 08/21/24 Dental Screening Dental Screen Date: 08/21/24 Did you have a dental visit in the last 12 months?: Yes Did you have a dental problem in the last 6 months where you did not have access to dental care?: No Was dental information given to patient?: Patient has dentist HPI 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 Endo: She is currently on levothyroxine 100 mcg. She just restarted this 4 days ago after being off of this for many months. Musculoskeletal: States that since 2019 she has dealt with some ankle pain and instability following sprained ankles. 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 She has had imaging in the past and states that it was negative for any fractures. She would like to do physical therapy to help strength in upper ankles. She also has been experiencing some intermittent knee pain for the last few years. She states that she wants to get back to working out but would like to see someone in regards to strengthening her knee and had her start working out again. PULM: Does report today that her asthma feels a bit exacerbated since she has been sick. She has been sick with right ear pain, sinus pain and pressure for the last week or so. For the last 2 days she has had increased discomfort in the right ear with decreased hearing. She can still hear out of it but does note that it was diminished. No fevers or chills. She is on a maintenance inhaler but does not have a rescue inhaler. She has never been hospitalized or intubated for asthma. 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 1. Little interest or pleasure in doing things: nearly every day 2. Feeling down, depressed, or hopeless: several days 3. Trouble falling or staying asleep, or sleeping too much: nearly every day 4. Feeling tired or having little energy: nearly every day 5. Poor appetite or overeating: more than half the days 6. Feeling bad about yourself - or that you are a failure or have let yourself or your family down: several days 7. Trouble concentrating on things, such as reading the newspaper or watching television: nearly every day 8. Moving or speaking so slowly that other people could have noticed. Or the opposite - being so fidgety or restless that you have been moving around a lot more than usual: nearly every day 9. Thoughts that you would be better off or of hurting yourself in some way: not at all Total score: 19 Source: Developed by Drs. Candido Perdue, Rosetta Justin, Luca Bright and colleagues, with an educational domitila from [employer]. Thrive Questionnaire I am a: Patient What is your living situation today?: I have a steady place to live Within the past 12 months, did the food you bought not last and you didn't have the money to get more?: Never true Within the past 12 months, did you worry whether your food would run out before you got money to buy more?: Never true Do you have trouble paying for medicines?: No Do you have trouble getting transportation to medical appointments?: No Do you have trouble paying your heating and electricity bill?: No Do you have trouble taking care of your child, family member or friend?: No Do you have trouble with day-to-day activities such as bathing, preparing meals, shopping, managing finances, etc.?: No Are you currently unemployed and looking for a job?: Yes Are you interested in more education?: No Please select the resources that you would like help with: Utilities Currently or been in a relationship where the following occur: I choose not to answer THRIVE Score: 0 AUDIT C Alcohol Use Questionnaire (AUDIT-C) 1. How often do you have a drink containing alcohol?: 2-4 times a month 2. How many drinks containing alcohol do you have on a typical day when you are drinking?: 1 or 2 3. How often do you have six or more drinks on one occasion?: Never Total Score: 2 RYAN-7 AMB Questionnaire RYAN-7 Feeling nervous, anxious, or on edge: 2 = More than half the days Not being able to stop or control worryin = Nearly every day Worrying too much about different things: 3 = Nearly every day Trouble relaxin = More than half the days Being so restless that it is hard to sit still: 1 = Several days Feeling afraid as if something awful might happen: 1 = Several days Source: Developed by Drs. Candido Perdue, Rosetta Justin, Luca Bright and colleagues, with an educational domitila from [employer]. Physical exam (Primary Care) Vital Signs: Last Vital Signs Temp 98.4 F 08/21/24 11:46 Pulse 72 08/21/24 11:46 BP 104/68 08/21/24 11:46 Pulse Ox 98 08/21/24 11:46 Oxygen Delivery Method Room Air 08/21/24 11:46 BMI result Body Mass Index 39.4 Tobacco/Smoking Status: Tobacco use Status Tobacco use date assessed 08/21/24 08/21/24 11:50 Patient Tobacco Use Status Current everyday Tobacco 08/21/24 11:50 e-Cigarette/Vaping Use Never Used 08/21/24 11:50 PHQ-9: PHQ-9 Score PHQ-9: Total score 19 08/21/24 11:50 Currently or been in a relationship where the following occur: I choose not to answer Const Orientation/consciousness: patient oriented x3 HENMT Other: TMs dome-shaped with small air-fluid levels. TM on right is erythematous. She is able to hear a finger rub bilaterally. Nasal mucosa is erythematous and edematous with purulent drainage noted. Sinus tenderness present. Ears: hearing grossly normal bilaterally Neck Thyroid: Thyroid normal Lymphatic: no lymphadenopathy noted Resp Auscultation: wheezes scattered wheezes and throughout Cardio Rate: regular rate Rhythm: regular rhythm Heart sounds: S1 normal heart sound present and S2 normal heart sound present GI Inspection: Yes normal to inspection Palpation (GI): Soft to palpation and Other GI palpation findings present (nontender, no cva tenderness) Auscultation: normoactive bowel sounds Rectal Exam - Female: deferred Skin General skin exam: no rashes or lesions noted Neuro General: patient oriented x3, gait normal and no focal motor deficits Coding Level of Care Code New Pt Level 4 (91579) Complex EM visit Add On G2211 Diagnoses Hypothyroidism, unspecified type E03.9 Hypothyroidism type: unspecified IFG (impaired fasting glucose) R73.01 Bilateral ankle pain M25.571; M25.572 Left knee pain M25.562 Bacterial sinusitis J32.9; B96.89 Asthma exacerbation J45.901 Assessment & Plan Assessment & Plan (1) Hypothyroidism: Code(s): E03.9 - Hypothyroidism, unspecified Category: Medical Qualifiers: Hypothyroidism type: unspecified Qualified Code(s): E03.9 - Hypothyroidism, unspecified Plan: We will recheck TSH in 6 weeks (2) IFG (impaired fasting glucose): Code(s): R73.01 - Impaired fasting glucose Category: Medical Plan: A1c ordered (3) Bilateral ankle pain: Code(s): M25.571 - Pain in right ankle and joints of right foot; M25.572 - Pain in left ankle and joints of left foot Category: Medical Plan: Referral to PT (4) Left knee pain: Code(s): M25.562 - Pain in left knee Category: Medical Plan: As above (5) Bacterial sinusitis: Code(s): J32.9 - Chronic sinusitis, unspecified; B96.89 - Other specified bacterial agents as the cause of diseases classified elsewhere Plan: We will start on prednisone taper. Refilled albuterol. Discussed risks and benefits and adverse effects of this medication. We will start Augmentin. Advised to follow up if anything worsens or changes. Patient understands and agrees with this plan. (6) Asthma exacerbation: Code(s): J45.901 - Unspecified asthma with (acute) exacerbation Plan: As above Orders: Orders Comprehensive [place]. Panel Fast Today E03.9 - Hypothyroidism, unspecified, R73.01 - Impaired fasting glucose Hemoglobin A1c Today E03.9 - Hypothyroidism, unspecified, R73.01 - Impaired fasting glucose Lipid Panel Today E03.9 - Hypothyroidism, unspecified, R73.01 - Impaired fasting glucose TSH reflex Free T4 Today E03.9 - Hypothyroidism, unspecified, R73.01 - Impaired fasting glucose Magnesium Today E03.9 - Hypothyroidism, unspecified, R73.01 - Impaired fasting glucose Complete Blood Count Auto Diff Today E03.9 - Hypothyroidism, unspecified, R73.01 - Impaired fasting glucose Vitamin B12 and Folate Today E03.9 - Hypothyroidism, unspecified, R73.01 - Impaired fasting glucose PT Evaluation and Treatment Today M25.562 - Pain in left knee, M25.571 - Pain in right ankle and joints of right foot, M25.572 - Pain in left ankle and joints of left foot US thyroid Today E03.9 - Hypothyroidism, unspecified Referrals MACHINE II ENGRAVER Referral Z01.419 - Encounter for gynecological examination (general) ( routine) without abnormal findings Medications: New amoxicillin-pot clavulanate 875-125 mg 1 tab PO BID 20 tabs 0RF prednisone take 3 tab po x 3 days, take 2 tab po x 3 days, 1 tab po x 3 days 18 tabs 0RF albuterol sulfate 90 mcg/actuation 2 puffs inhalation Q6H PRN 8.5 grams 2RF shortness of breath or wheezing Discontinued doxycycline hyclate Discontinued Reason: Patient Completed Course 100 mg PO BID 7 days 14 tabs 0RF prednisone Take 3 tablets for 5 days THEN; Take 2 tablets for 4 days THEN; Take 1 tablet for 3 days Discontinued Reason: Patient no longer taking 20 mg PO DAILY 12 days 26 tabs 0RF levothyroxine Discontinued Reason: Duplicate 100 mcg PO DAILY 90 caps 0RF
[2024-08-21 11:46] VITALS: BP 104/68; PULSE 72; TEMP 36.9; O2SAT 98; BMI 39.4
== END 2024-08-21 12:12 | disposition home or self-care (01) ==
PROVIDERS: Visit Provider Physician Assistant
DX: E03.9 Hypothyroidism, unspecified (principal); R73.01 Impaired fasting glucose; M25.571 Pain in right ankle and joints of right foot; M25.572 Pain in left ankle and joints of left foot; M25.562 Pain in left knee; J32.9 Chronic sinusitis, unspecified; B96.89 Other specified bacterial agents as the cause of diseases classified elsewhere; J45.901 Unspecified asthma with (acute) exacerbation

== ENCOUNTER → 2024-08-21 10:48 | Outpatient (BNVA) | payer OTHER, SELFPAY | PROVIDERS: Visit Provider Physician Assistant | DX: E03.9 Hypothyroidism, unspecified (principal); R73.01 Impaired fasting glucose; M25.571 Pain in right ankle and joints of right foot; M25.572 Pain in left ankle and joints of left foot; M25.562 Pain in left knee; J32.9 Chronic sinusitis, unspecified; B96.89 Other specified bacterial agents as the cause of diseases classified elsewhere; J45.901 Unspecified asthma with (acute) exacerbation; Z79.899 Other long term (current) drug therapy | CPT/HCPCS: 99202 ==

== ENCOUNTER 2024-09-03 14:32 | Outpatient (REF) | payer OTHER, SELFPAY | END 2024-09-03 14:33 | disposition home or self-care (01) | LOC: HO.US 14:32 | PROVIDERS: PCP Physician Assistant; Visit Provider Physician Assistant | DX: E03.9 Hypothyroidism, unspecified (principal) | CPT/HCPCS: 76536 ==

== ENCOUNTER 2024-09-09 13:55 | Outpatient (RCR) | payer OTHER, SELFPAY ==
--- NOTE | 2024-09-09 14:37 | MHC.PT.EP ---
[facility] [place] [facility] [place] Office [place] Office [address] Dionisio Little [address] [phone] F: [phone] F: [phone] F: [phone] F: [phone] Physical Therapy Plan of Care Date of Evaluation: 09/09/24 Date of Surgery: n/a Diagnosis: B ankle pain Assessment: Patient is a 38 year old female presenting to PT with complaints of pain in her B ankles. Pt reports onset of pain began around 2018 due to missing last step of staircases. She presents today with impairments in pain, ankle strength, balance, tenderness to palpation. 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 Pt expresses retirement goal of reducing pain, and is motivated to work towards this in PT. Clinical presentation today is most consistent with signs and sx associated with B ankle pain and pt will benefit from skilled PT 2 week x 4 weeks to address the following problems and impairments noted upon evaluation: pain, ankle strength, balance, tenderness to palpation. These problems limit the patient with the following functional activities: ambulating, standing, ADLs, stair negotiation. The prescribed treatment plan of care is medically necessary. Co-morbidities of none were identified and taken into considerations of plan of care. Pt was educated on HEP, role of PT, prognosis, POC. Frequency and Duration: The patient will be seen 2 x week x 4 weeks Short Term Goals: Pt will demonstrate ability to perform SLS x 30 sec ea with min to no pain in 2 weeks. Pt will demonstrate improved ankle ev/inv strength to 4+/5 in 2 weeks. Halfway Goals: Pt will demonstrate improved LEFI score by 9 points in 4 weeks for improved functional mobility. Pt will demonstrate ability to ambulate for prolonged periods of time with min to no pain in 4 weeks for return to PLOF. Pt will demonstrate ability to negotiate stairs with min to no pain in 4 weeks for improved access to her home. Treatment Plan: Modalities to reduce pain, spasms and effusion. Manual therapy to restore motion and function. Therapeutic exercise to improve strength and flexibility. Neuromuscular re-education for posture and balance. Therapeutic activities to return to functional activities of daily living. Electronically signed by: Sonali Richardson, PT, DPT, ATC Please sign and return to therapist. Thank you for your referral.
--- NOTE | 2024-09-18 07:27 | MHC.PT.DC ---
[facility] [place] Office [place] Office [place] Office [address] [phone] F: [phone] F: [phone] F: [phone] F: [phone] Physical Therapy Discharge Report Diagnosis: B ankle pain Date of Surgery: n/a Date of Evaluation: 09/09/24 Date of Discharge: 09/18/24 Treatments to Date: 1 Cancellations to Date: 0 No Shows to Date: 2 Discharge Status: Visit Non-compliance Discharge Summary: Pt has failed to comply with [facility] attendance policy and no showed her first 2 visits since eval. Therefore to be d/c per policy. Electronically signed by: Sonali Richardson, PT, DPT, ATC Please sign and return to therapist. Thank you for your referral.
== END 2024-09-18 07:27 | disposition home or self-care (01) ==
LOC: HO.PTCHIC 13:55
PROVIDERS: PCP Physician Assistant; Visit Provider Physician Assistant
DX: M25.571 Pain in right ankle and joints of right foot (principal); M25.572 Pain in left ankle and joints of left foot; M25.562 Pain in left knee
CPT/HCPCS: 97110; 97161

== ENCOUNTER 2024-09-10 13:10 | Outpatient (AMB) | payer OTHER, SELFPAY ==
--- NOTE | 2024-09-10 13:11 | MHC.PC.OV ---
Vital Signs 09/10/24 13:14 Height 5 ft 2 in Weight 214 lb 6 oz BMI 39.2 BP 102/76 Blood Pressure Location Rt brachial Position Sitting Pulse 92 Pulse Source Pulse Oximeter Temp 98.2 F Temp Source Oral Pulse Oximetry (%) 97 Oxygen Delivery Method Room Air Intake Visit Reasons: Asthma, Cough URI-Ear clogged FU (change pcp) Intake Note: Asthma follow. Breaking out in hives, started on Sunday. School Psychological Examiner Required: No Allergies acetaminophen [From Excedrin Migraine] Allergy (Verified 09/10/24 13:12) Swelling aspirin [From Excedrin Migraine] Allergy (Verified 09/10/24 13:12) Swelling caffeine [From Excedrin Migraine] Allergy (Verified 09/10/24 13:12) Swelling ibuprofen Allergy (Verified 09/10/24 13:12) Swelling Medication List - Last Reconciled 09/10/24 by Yuliya Foy PA-C albuterol sulfate 90 mcg/actuation 2 puffs inhalation Q6H PRN levothyroxine (Synthroid) 100 mcg PO DAILY 30 days Tobacco use date assessed: 08/21/24 Dental Screening Dental Screen Date: 08/21/24 HPI Asthma, Cough URI-Ear clogged FU (change pcp) HPI Details Patient is a 38-year-old female with a significant past medical history of hypothyroidism, asthma, bilateral ankle pain, left knee pain presenting today for a problem visit to discuss her upper respiratory symptoms. PULM: She was last treated for a sinus infection a few weeks ago and felt better with that and a prednisone taper for her asthma. She states that she had her symptoms gradually come back with the increased wheezing. Her asthma felt better and normal for about 1 week but over the last week it has been present and she has been using her albuterol 4 times a day for improvement of symptoms. It is worse at night and when she is at home. She had recently get a new dog. She is intermittently also breaking out in hives on her skin. No hives today. She has not taken anything for this. She says that her sinuses feel congested but not necessarily painful. Ears feel blocked but no pain.. She states that she has never needed a maintenance inhaler. She has never been hospitalized or intubated for asthma. No fevers or chills. Endo: She is currently on levothyroxine 100 mcg. She just restarted this a couple weeks ago after being off of it for many months. [facility] Social History Housing: Apartment Alcohol intake: never Patient Tobacco Use Status: Current everyday Tobacco user Cigarette Packs Per Day: 3 Years Smoked: 2 e-Cigarette/Vaping Use: Never Used Second Hand Smoke Exposure: No service: No Current occupational status: employed and unemployed Cognitive needs: No Hearing needs: No Vision needs: No Questionnaire Thrive Questionnaire Currently or been in a relationship where the following occur: I choose not to answer THRIVE Score: 0 ACT Questionnaire In the past 4 weeks, how much of the time did your asthma keep you from getting as much done at work, school or at home?: Some of the time During the past 4 weeks, how often have you had shortness of breath?: More than once a day During the past 4 weeks, how often did your asthma symptoms wake you up at night or earlier than usual in the morning?: 4 or more nights a week (Everyday. ) During the past 4 weeks, how often have you had to use your rescue inhaler or nebulizer medication?: More than 3 times per day (4 times a day) How would you rate your asthma control during the past 4 weeks?: Not controlled at all ACT Interpretation: Positive Score: 7 Physical exam (Primary Care) Tobacco/Smoking Status: Tobacco use Status Tobacco use date assessed 08/21/24 08/21/24 11:50 Patient Tobacco Use Status Current everyday Tobacco 08/21/24 11:50 e-Cigarette/Vaping Use Never Used 08/21/24 11:50 Currently or been in a relationship where the following occur: I choose not to answer Const Orientation/consciousness: patient oriented x3 HENMT Other: TMs dome-shaped with small air-fluid levels. She is able to hear a finger rub bilaterally. Nasal mucosa is pale and edematous with clear drainage noted. Sinus tenderness present. Ears: hearing grossly normal bilaterally Neck Thyroid: Thyroid normal Lymphatic: no lymphadenopathy noted Resp Auscultation: wheezes scattered wheezes and throughout Cardio Rate: regular rate Rhythm: regular rhythm Heart sounds: S1 normal heart sound present and S2 normal heart sound present GI Inspection: Yes normal to inspection Palpation (GI): Soft to palpation and Other GI palpation findings present (nontender, no cva tenderness) Auscultation: normoactive bowel sounds Rectal Exam - Female: deferred Skin General skin exam: no rashes or lesions noted Neuro General: patient oriented x3, gait normal and no focal motor deficits Results Reviewed Results Reviewed: Laboratory Tests 04/05/23 08/13/24 20:17 10:32 WBC 12.4 H RBC 4.42 Hgb 12.5 Hct 38.9 Plt Count 373 Sodium 138 Potassium 4.0 Chloride 110 H Carbon Dioxide 22 Anion Gap 10 L BUN 15 Creatinine 0.79 Estim Creat Clear Calc 107.1 Estimated GFR > 60 Random Glucose 124 H AST 13 ALT 12 TSH 39.02 H Free T4 0.44 L Total T3 63 L Coding Level of Care Code Est Pt Level 4 (16754) Complex EM visit Add On G2211 Diagnoses Hypothyroidism, unspecified type E03.9 Hypothyroidism type: unspecified Moderate asthma with acute exacerbation J45.901 Sinusitis J32.9 Additional Codes Asthma Control Questionnaire - ACT Interpretation: Positive ([id number]) Assessment & Plan Assessment & Plan (1) Hypothyroidism: Code(s): E03.9 - Hypothyroidism, unspecified Category: Medical Qualifiers: Hypothyroidism type: unspecified Qualified Code(s): E03.9 - Hypothyroidism, unspecified Plan: Plans to recheck in a few weeks. We did discuss that this could also contribute to hives. (2) Moderate asthma with acute exacerbation: Code(s): J45.901 - Unspecified asthma with (acute) exacerbation Category: Medical Plan: We will start her on Asmanex. Discussed risks and benefits and adverse effects such as thrush. Continue to use albuterol as needed. Prednisone taper ordered for the asthma exacerbation. We will also start Singulair. She states getting rid of the dog is not on option. Referral to Allergy and immunology. (3) Sinusitis: Code(s): J32.9 - Chronic sinusitis, unspecified Category: Medical Plan: As above. We will start Nasacort as well. Orders: Referrals Allergy & Immunology Referral J32.9 - Chronic sinusitis, unspecified, J45.901 - Unspecified asthma with (acute) exacerbation Medications: New prednisone take 3 tab po x 3 days, take 2 tab po x 3 days, 1 tab po x 3 days 18 tabs 0RF montelukast (Singulair) 10 mg PO BEDTIME 90 tabs 1RF triamcinolone acetonide (Nasacort) administer into each nostril 2 sprays intranasal DAILY 16.9 mL 2RF montelukast (Singulair) 10 mg PO BEDTIME 90 tabs 1RF mometasone 100 mcg/actuation (Asmanex HFA) 1 puff inhalation BID 13 grams 4RF triamcinolone acetonide (Nasacort) administer into each nostril 2 sprays intranasal DAILY 16.9 mL 2RF mometasone 100 mcg/actuation (Asmanex HFA) 1 puff inhalation BID 13 grams 4RF prednisone take 3 tab po x 3 days, take 2 tab po x 3 days, 1 tab po x 3 days 18 tabs 0RF
[2024-09-10 13:14] VITALS: BP 102/76; PULSE 92; TEMP 36.8; O2SAT 97; BMI 39.2
== END 2024-09-10 13:34 | disposition home or self-care (01) ==
LOC: HO.HMCFM 13:10
PROVIDERS: PCP Physician Assistant; Visit Provider Physician Assistant
DX: E03.9 Hypothyroidism, unspecified (principal); J45.901 Unspecified asthma with (acute) exacerbation; J32.9 Chronic sinusitis, unspecified

== ENCOUNTER → 2024-09-10 13:10 | Outpatient (BNVA) | payer OTHER, SELFPAY | PROVIDERS: PCP Physician Assistant; Visit Provider Physician Assistant | DX: E03.9 Hypothyroidism, unspecified (principal); J45.901 Unspecified asthma with (acute) exacerbation; J32.9 Chronic sinusitis, unspecified | CPT/HCPCS: 96160; 99212 ==

== ENCOUNTER 2024-11-06 14:32 | Outpatient (AMB) | payer OTHER, SELFPAY ==
--- NOTE | 2024-11-06 14:29 | MHC.PC.OV ---
Intake Visit Reasons: medication concerns Intake Note: Discuss recall on thyroid medication. Supervisor Pipe Finishing Required: No Allergies acetaminophen [From Excedrin Migraine] Allergy (Verified 11/06/24 14:31) Swelling aspirin [From Excedrin Migraine] Allergy (Verified 11/06/24 14:31) Swelling caffeine [From Excedrin Migraine] Allergy (Verified 11/06/24 14:31) Swelling ibuprofen Allergy (Verified 11/06/24 14:31) Swelling Medication List - Last Reconciled 11/06/24 by Yuliya Foy PA-C albuterol sulfate 90 mcg/actuation 2 puffs inhalation Q6H PRN levothyroxine 100 mcg PO DAILY mometasone 100 mcg/actuation (Asmanex HFA) 1 puff inhalation BID montelukast (Singulair) 10 mg PO BEDTIME triamcinolone acetonide (Nasacort) 2 sprays intranasal DAILY Tobacco use date assessed: 08/21/24 Dental Screening Dental Screen Date: 08/21/24 HPI medication concerns HPI Details Patient is a 38-year-old female who presents today for a follow up regarding her hypothyroidism. She says that she scheduled this telehealth appointment because she wanted to discuss the levothyroxine. She says that she needs a new prescription as hers ran out a few days ago and the Synthroid version that she was on got recalled. We did review that she has not yet completed the labs that was ordered in August. She tells me that she still feels somewhat tired and like her thyroid is probably sluggish. She states that she will come to the office to get that completed. No acute concerns today. She had a swollen to make sure that this got sorted out. [facility] Social History Housing: Apartment Alcohol intake: never Patient Tobacco Use Status: Current everyday Tobacco user Cigarette Packs Per Day: 3 Years Smoked: 2 e-Cigarette/Vaping Use: Never Used Second Hand Smoke Exposure: No service: No Current occupational status: employed and unemployed Cognitive needs: No Hearing needs: No Vision needs: No Questionnaire Thrive Questionnaire Date Thrive assessed: 08/21/24 Physical exam (Primary Care) Tobacco/Smoking Status: Tobacco use Status Tobacco use date assessed 08/21/24 11/06/24 14:31 Patient Tobacco Use Status Current everyday Tobacco 11/06/24 14:31 e-Cigarette/Vaping Use Never Used 11/06/24 14:31 Thrive Assessment: Date of Thrive Assessment Date Thrive assessed 08/21/24 11/06/24 14:31 Telehealth Telehealth Telehealth Platform: Telephone Location of provider rendering services: practice address Location of patient: address on file Patient Identification confirmed using: Name, : Yes Telehealth method: voice only Patient verbally consented to treatment: Yes Patient verbally consented to billing insurance company: Yes Patient informed of any privacy concerns related to visit: Yes Minutes spent on Phone/Video with Pt.: 12 Coding Level of Care Code Tele Est Pt Level 2 (48239) Diagnoses IFG (impaired fasting glucose) R73.01 Hypothyroidism, unspecified type E03.9 Hypothyroidism type: unspecified Assessment & Plan Assessment & Plan (1) IFG (impaired fasting glucose): Code(s): R73.01 - Impaired fasting glucose Category: Medical Plan: Reminded patient A1c is ordered. Advised her to complete this. (2) Hypothyroidism: Code(s): E03.9 - Hypothyroidism, unspecified Category: Medical Qualifiers: Hypothyroidism type: unspecified Qualified Code(s): E03.9 - Hypothyroidism, unspecified Plan: Refilled medication Advised to complete her TSH. Medications: New levothyroxine 100 mcg PO DAILY 90 tabs 2RF Discontinued levothyroxine (Synthroid) Discontinued Reason: Doctor's Order 100 mcg PO DAILY 30 days 30 tabs 0RF
--- OUTSIDE RECORDS SUMMARY | 2024-11-06 16:01 | XMS_ITS | Continuity of Care Document ---
Author Organization [facility] vices Address [address] [place] [address] Phone Care Team Providers Care Medical Transcription Editor Name Role Phone Case Management, [facility] Unavailable Advance Directives Directive Yes / No Effective Date File Name No Information Encounters Encounter Description Practice Location Reason(s) For Visit Diagnoses Date Provider Providers Copied on Encounter [facility], [address] [place] [address], [id number], [place] tel:[phone] [facility] Adult Medicine No Information Case Management [facility]. . Family History Family Member Type Diagnosis Age At Onset No Information Payers Payer name Insurance type Covered republican ID Authoriza tion(s) No Information Social History [...]
== END 2024-11-06 14:41 | disposition home or self-care (01) ==
LOC: HO.HMCFM 14:33
PROVIDERS: PCP Physician Assistant; Visit Provider Physician Assistant
DX: R73.01 Impaired fasting glucose (principal); E03.9 Hypothyroidism, unspecified

== ENCOUNTER → 2024-11-06 14:32 | Outpatient (BNVA) | payer OTHER, SELFPAY | PROVIDERS: PCP Physician Assistant; Visit Provider Physician Assistant ==

== ENCOUNTER 2024-11-11 11:01 | Outpatient (REF) | payer OTHER, SELFPAY ==
--- OUTSIDE RECORDS SUMMARY | 2024-11-11 18:37 | XMS_ITS | Continuity of Care Document ---
Author Organization [facility] vices Address [address] [place] [address] Phone Care Team Providers Care Haunted History Tour Guide Name Role Phone Case Management, [facility] Unavailable Advance Directives Directive Yes / No Effective Date File Name No Information Encounters Encounter Description Practice Location Reason(s) For Visit Diagnoses Date Provider Providers Copied on Encounter [facility], [address] [place] [address], [address], [place] tel:[phone] [facility] Adult Medicine No Information Case Management [facility]. . Family History Family Member Type [...]
[2024-11-12 02:49] LABS: CT PCR NOT DETECTED (Not Detect.); NG PCR NOT DETECTED (Not Detect.)
[2024-11-12 11:30] LABS: Bacterial Vaginosis PCR POSITIVE (Negative); Candida Group PCR NOT DETECTED (Not Detect); Candida glab krusei PCR NOT DETECTED (Not Detect); Trichomonas vaginalis PCR DETECTED (Not Detect)
== END 2024-11-11 11:02 | disposition home or self-care (01) ==
LOC: HO.LAB 11:01
PROVIDERS: PCP Physician Assistant; Visit Provider Advanced Practice Midwife
DX: Z01.419 Encounter for gynecological examination (general) (routine) without abnormal findings (principal); N89.8 Other specified noninflammatory disorders of vagina; N36.8 Other specified disorders of urethra; Z87.42 Personal history of other diseases of the female genital tract; Z11.3 Encounter for screening for infections with a predominantly sexual mode of transmission; Z11.51 Encounter for screening for human papillomavirus (HPV)
CPT/HCPCS: 81515; 87491; 87591; 87626; 88175; 99385; 99459

== ENCOUNTER 2024-11-11 11:01 | Outpatient (AMB) | payer OTHER, SELFPAY ==
[2024-11-11 11:35] VITALS: BP 122/76; BMI 40.1
--- NOTE | 2024-11-11 11:35 | A.OFFVIS_ITS ---
Vital Signs 11/11/24 11:35 Height 5 ft 2 in Weight 219 lb BMI 40.1 BP 122/76 Intake Visit Reasons: Group Exercise Instructor Annual/Referral Fire Sprinkler Designer Required: No Fire Sprinkler Designer Services: Fire Sprinkler Designer Present Information Interpreted: clinical only Pharmaceutical Engineer: Pharmaceutical Engineer Present Allergies acetaminophen [From Excedrin Migraine] Allergy (Verified 11/11/24 11:35) Swelling aspirin [From Excedrin Migraine] Allergy (Verified 11/11/24 11:35) Swelling caffeine [From Excedrin Migraine] Allergy (Verified 11/11/24 11:35) Swelling ibuprofen Allergy (Verified 11/11/24 11:35) Swelling Medication List - Last Reconciled 11/11/24 by Whitley Britton CNM albuterol sulfate 90 mcg/actuation 2 puffs inhalation Q6H PRN levothyroxine 100 mcg PO DAILY mometasone 100 mcg/actuation (Asmanex HFA) 1 puff inhalation BID montelukast (Singulair) 10 mg PO BEDTIME triamcinolone acetonide (Nasacort) 2 sprays intranasal DAILY Is last menstrual period known: Yes Last menstrual period: 11/03/24 HPI HPI Group Exercise Instructor Annual/Referral: 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 and [facility]. She does remember having an abnormal Paps in the past. She had ParaGard IUDs in the past for control and she had 1 removed a couple of years ago to try and get but that did not happen she has broken up with that relationship now for the last 3 months. She became tearful thinking about this journey of not getting and time transpiring she just turned 39 years old. 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 She will be getting fasting blood work tomorrow she suspects she may be prediabetic and we will be going for fasting labs and we will be following up with her primary care person after that. She is also hypothyroid. She is currently not with anyone and does not need a method of control now she is aware of ovulation.. Her last menstrual periods started around [place] ended just prior to new year's her periods are heavy. She had some sort of cyst noted around her urethra many years ago and surgery was discussed but never followed up on but she is wondering if she could talk to somebody about that too. [facility] Medical History (Updated 11/11/24 @ 12:23 by Whitley Britton CNM) Hypoparathyroidism Asthma Social History Housing: Apartment Alcohol intake: never Patient Tobacco Use Status: Current everyday Tobacco user Cigarette Packs Per Day: 3 Years Smoked: 2 e-Cigarette/Vaping Use: Never Used Second Hand Smoke Exposure: No service: No Current occupational status: employed and unemployed Cognitive needs: No Hearing needs: No Vision needs: No Female Reproductive History Menstrual Age of Menarche: 10 Duration of menses: 3-5 days Date of last menstrual period: 11/03/24 control method: none Total pregnancies: 3 Full term: 2 Date of last pap smear: 12/27/21 (negative(per patient)) History of abnormal pap smear: Yes (hx) Physical Exam Vital Signs: Last Vital Signs BP 122/76 11/11/24 11:35 BMI result Body Mass Index 40.1 Const General: healthy appearing, comfortable, no acute distress, well developed and alert Nutritional Appearance: average body habitus Orientation/consciousness: patient oriented x3 Limitations: no limitations HEENT Head: Yes normocephalic Neck Neck: Yes normal visual inspection Chest Chest palpation & inspection: normal inspection of the chest Breast/axilla inspection: normal inspection of the breasts and normal inspection of the axillae Breast/axilla palpation: normal palpation of the breasts and normal palpation of the axillae Resp Effort & Inspection: normal respiratory effort GI Inspection: Yes normal to inspection, No Abdominal wall edema and No distended Palpation (GI): Soft to palpation and nontender Other: External exam within normal limits vagina pink and moist there is a moran sized swelling that appears to be connected with urethra it is not hard or inflamed and is nontender. Vagina is pink and moist cervix multiparous pink moist with clear fertile type mucus. Uterus is small anteverted mobile nontender adnexa nontender. fair tone with Kegel General: Yes bladder normal to palpation External Female Exam: normal external appearance and normal appearance of the urethra Speculum Exam - Vagina: normal appearance of the vagina, normal palpation and normal vaginal discharge Speculum Exam - Cervix: normal appearance of the cervix, normal palpation and nontender Bimanual exam- vagina & uterus: normal bimanual exam, normal palpation, uterine size normal, bladder normal to palpation, consistency normal, normal palpation, uterine mobility normal, uterine shape normal, No Cervical tenderness present, non-tender and no cervical motion tenderness Bimanual Exam- Adnexa, other: normal adnexae, no masses, normal and No adnexal tenderness Neuro General: patient oriented x3 Assessment & Plan Assessment & Plan (1) Urethral cyst: Code(s): N36.8 - Other specified disorders of urethra Category: Medical (2) Well woman exam with routine gynecological exam: Code(s): Z01.419 - Encounter for gynecological examination (general) (routine) without abnormal findings Category: Medical (3) Hx of abnormal cervical Pap smear: Code(s): Z87.42 - Personal history of other diseases of the female genital tract Category: Medical (4) Encounter for screening examination for sexually transmitted disease: Code(s): Z11.3 - Encounter for screening for infections with a predominantly sexual mode of transmission Category: Medical (5) Obesity, morbid, BMI 40.0-49.9: Code(s): E66.01 - Morbid (severe) obesity due to excess calories Category: Medical (6) Hypothyroidism: Code(s): E03.9 - Hypothyroidism, unspecified Category: Medical Qualifiers: Hypothyroidism type: unspecified Qualified Code(s): E03.9 - Hypothyroidism, unspecified (7) IFG (impaired fasting glucose): Code(s): R73.01 - Impaired fasting glucose Category: Medical Plan -----Discussed in this visit the following: healthy balanced diet, regular and consistent exercise, getting recommended health screens, doing the best she can for her particular health concerns, kegel exercises, pap smear screening and followup recommendations, mammography screening and SBE, normal changes in cycles in her life stage--- . Discussed issues with childbearing and fertility and her disappointment over not having gotten last year. Currently she is not with anyone and does not need a method of control discussed the differences between the ParaGard IUD and the Mirena IUD and the hormone effects and effects on menses.. Referral placed for Urology to have a discussion about her urethral cyst. She will be getting fasting blood work tomorrow morning and is anticipating that she may have pre diabetes and we will be following up with her primary care provider after that added blood work for her for STI testing. Additionally discussed her efforts to be careful about what she eats which she is doing and discussed considering adding in exercise this year she does exercise at home. Orders: Orders Hepatitis B Surface Antigen Today N36.8 - Other specified disorders of urethra, Z01.419 - Encounter for gynecological examination (general) (routine) without abnormal findings, Z11.3 - Encounter for screening for infections with a predominantly sexual mode of transmission, Z87.42 - Personal history of other diseases of the female genital tract HIV Ab/Ag Today N36.8 - Other specified disorders of urethra, Z01.419 - Encounter for gynecological examination (general) (routine) without abnormal findings, Z87.42 - Personal history of other diseases of the female genital tract Hepatitis C Antibody Today N36.8 - Other specified disorders of urethra, Z01.419 - Encounter for gynecological examination (general) (routine) without abnormal findings, Z87.42 - Personal history of other diseases of the female genital tract Syphilis Screen Today N36.8 - Other specified disorders of urethra, Z01.419 - Encounter for gynecological examination (general) (routine) without abnormal findings, Z87.42 - Personal history of other diseases of the female genital tract Referrals Urology Referral N36.8 - Other specified disorders of urethra Coding Level of Care Code New Pt Prev Care 18-39yr([id number] Diagnoses Urethral cyst N36.8 Well woman exam with routine gynecological exam Z01.419 Hx of abnormal cervical Pap smear Z87.42 Encounter for screening examination for sexually transmitted disease Z11.3 Obesity, morbid, BMI 40.0-49.9 E66.01 Hypothyroidism, unspecified type E03.9 Hypothyroidism type: unspecified IFG (impaired fasting glucose) R73.01
== END 2024-11-11 12:23 | disposition home or self-care (01) ==
PROVIDERS: PCP Physician Assistant; Visit Provider Advanced Practice Midwife
DX: Z01.419 Encounter for gynecological examination (general) (routine) without abnormal findings (principal); N36.8 Other specified disorders of urethra; Z87.42 Personal history of other diseases of the female genital tract
CPT/HCPCS: 99385; 99459

== ENCOUNTER 2024-11-11 14:45 | Outpatient (REF) | payer OTHER, SELFPAY ==
--- OUTSIDE RECORDS SUMMARY | 2024-11-11 18:37 | XMS_ITS | Continuity of Care Document ---
Author Organization [facility] vices Address [address] [place] [address] Phone Care Team Providers Care Marketing Business Analyst Name Role Phone Case Management, [facility] Unavailable Advance Directives Directive Yes / No Effective Date File Name No Information Encounters Encounter Description Practice Location Reason(s) For Visit Diagnoses Date Provider Providers Copied on Encounter [facility], [address] [place] [address], [address], [place] tel:[phone] [facility] Adult Medicine No Information Case Management [facility]. . Family History Family Member Type [...]
[2024-11-12 11:15] LABS: HPV 16,18/45 See PAP report
== END 2024-11-11 14:46 | disposition home or self-care (01) ==
LOC: HO.LNP 14:45
PROVIDERS: Visit Provider Advanced Practice Midwife
DX: Z13.89 Encounter for screening for other disorder (principal)
CPT/HCPCS: 87626; 88175

== ENCOUNTER 2024-11-13 10:39 | Outpatient (REF) | payer OTHER, SELFPAY ==
[2024-11-13 14:10] LABS: MANUAL DIFF FLAG NO
[2024-11-13 14:15] LABS: Basophils Percent Auto 0.3 % (0-2); Eosinophils Absolute Auto 0.2 X10*3/uL (0.0-0.4); Eosinophils Percent Auto 1.5 % (0-4); Hematocrit 34.6 % (37.0-47.0); Hemoglobin 10.9 g/dl (12.0-16.0); Imm Gran Abs Auto 0.05 X10*3/uL (0.00-0.03); Imm Gran Pct Auto 0.5 % (0.0-0.4); Lymphocytes Absolute Auto 2.3 X10*3/uL (1.2-4.9); Lymphocytes Percent Auto 21.8 % (20-40); Mean Corpuscular HGB Conc 31.5 g/dl (31.0-35.0); Mean Corpuscular Hemoglobin 25.9 pg (27.0-33.0); Mean Corpuscular Volume 82.2 fL (80.0-98.0); Mean Platelet Volume 9.9 fL (9.4-12.3); Monocytes Absolute Auto 0.7 X10*3/uL (0.1-1.2); Monocytes Percent Auto 6.5 % (2-11); Neutrophils Absolute Auto 7.3 x10*3/uL (2.0-8.3); Neutrophils Percent Auto 69.4 % (45-73); Platelet Count 424 X10*3/uL (160-400); Red Blood Count 4.21 X10*6/uL (4.20-5.50); Red Cell Distribution Width 16.4 % (11.0-16.0); White Blood Count 10.5 X10*3/uL (4.8-10.8)
[2024-11-13 14:23] LABS: Estimated Average Glucose 108 mg/dL; Hemoglobin A1C 100.8424 umol/L; Hemoglobin A1c % 5.4 % (<6.0); Total Hemoglobin (HGBA1C) 2859.2678 umol/L
[2024-11-13 14:58] LABS: Alanine Aminotransferase 30 U/L (0-31); Albumin Level 4.1 g/dL (3.5-5.0); Alkaline Phosphatase 54 U/L (39-117); Anion Gap 9 (12-20); Aspartate Amino Transferase 25 U/L (5-31); Bilirubin Total 0.2 mg/dL (0.0-1.0); Blood Urea Nitrogen 13 mg/dL (9-16); Calcium 9.3 mg/dL (8.4-10.2); Carbon Dioxide 26 mmol/L (22-29); Chloride 108 mmol/L (96-108); Cholesterol 191 mg/dL (<200); Estimated Glomerular Filt Rate > 60; Glucose Fasting 103 mg/dL (60-99); HDL Cholesterol 56 mg/dL (>40); LDL Cholesterol Calculated 102 mg/dL (<100); Magnesium 1.9 mg/dL (1.6-2.6); Potassium 3.6 mmol/L (3.3-5.1); Sodium 139 mmol/L (135-145); Total Protein 7.1 g/dL (6.5-8.0); Triglycerides 169 mg/dL (<150)
[2024-11-13 14:59] LABS: TSH reflex Free T4 13.42 uIU/mL (0.32-4.0)
[2024-11-13 15:05] LABS: Folate 13.6 ng/mL (> or = 4.0); Vitamin B12 473 pg/mL (200-900)
[2024-11-13 15:43] LABS: Free T4 (Free Thyroxine) 0.91 ng/dL (0.71-1.85)
[2024-11-14 07:58] LABS: Syphilis Screen Nonreactive (Nonreactive)
[2024-11-14 09:11] LABS: HBsAGNum1 0.36 S/CO (0.00-0.99); HIV AB/AG Nonreactive (Nonreactive); HIV Num 1 0.05 S/CO (0.00-0.99); Hepatitis B Surface Antigen Negative (Negative); ~HepC Num1 0.09 S/CO (0.00-0.79); ~Hepatitis C Antibody Nonreactive (Nonreactive)
== END 2024-11-13 10:40 | disposition home or self-care (01) ==
LOC: HO.WFDLDS 10:39
PROVIDERS: Referring Provider Advanced Practice Midwife; Visit Provider Physician Assistant
DX: Z01.419 Encounter for gynecological examination (general) (routine) without abnormal findings (principal); E03.9 Hypothyroidism, unspecified; R73.01 Impaired fasting glucose; N36.8 Other specified disorders of urethra; Z87.42 Personal history of other diseases of the female genital tract; Z11.3 Encounter for screening for infections with a predominantly sexual mode of transmission
CPT/HCPCS: 36415; 80053; 80061; 82607; 82746; 83036; 83735; 84439; 84443; 85025; 86780; 86803; 87340; 87389

== ENCOUNTER 2025-01-15 10:37 | Outpatient (AMB) | payer OTHER, SELFPAY ==
--- NOTE | 2025-01-15 11:25 | MHC.OFFVIS ---
Intake Visit Reasons: urethral cyst Intake Note: Patient is present for URETHRAL CYST Urology Medication:NONE Antibiotic Allergy:NONE Blood Thinner:NONE Skein Yarn Dyer Required: No Allergies acetaminophen [From Excedrin Migraine] Allergy (Verified 01/15/25 11:26) Swelling aspirin [From Excedrin Migraine] Allergy (Verified 01/15/25 11:26) Swelling caffeine [From Excedrin Migraine] Allergy (Verified 01/15/25 11:26) Swelling ibuprofen Allergy (Verified 01/15/25 11:26) Swelling PFSH Medical History (Updated 11/20/24 @ 12:39 by Whitley Britton CNM) Hypoparathyroidism Asthma Social History Housing: Apartment Alcohol intake: never Patient Tobacco Use Status: Current everyday Tobacco user Cigarette Packs Per Day: 3 Years Smoked: 2 e-Cigarette/Vaping Use: Never Used Second Hand Smoke Exposure: No service: No Current occupational status: employed and unemployed Cognitive needs: No Hearing needs: No Vision needs: No Female Reproductive History Menstrual Age of Menarche: 10 Coding
--- OUTSIDE RECORDS SUMMARY | 2025-01-15 13:29 | XMS_ITS | Continuity of Care Document ---
Author Organization [facility] vices Address [address] [place] [address] Phone Care Team Providers Care Folder Taper Operator Name Role Phone Case Management, [facility] Unavailable Advance Directives Directive Yes / No Effective Date File Name No Information Encounters Encounter Description Practice Location Reason(s) For Visit Diagnoses Date Provider Providers Copied on Encounter [facility], [address] [place] [address], [address], [place] tel:[phone] [facility] Adult Medicine No Information Case Management [facility]. . Family History Family Member Type Diagnosis Age At Onset No Information Payers Payer name Insurance type Covered libertarian ID Authoriza tion(s) No Information Social History [...]
== END 2025-01-15 11:57 | disposition home or self-care (01) ==
LOC: HO.HUSH 10:38
PROVIDERS: PCP Physician Assistant; Visit Provider Urology
DX: Z13.9 Encounter for screening, unspecified (principal)

== ENCOUNTER 2025-01-15 10:37 | Outpatient (REF) | payer OTHER, SELFPAY ==
--- OUTSIDE RECORDS SUMMARY | 2025-01-15 19:15 | XMS_ITS | Continuity of Care Document ---
Author Organization [facility] vices Address [address] [place] [address] Phone Care Team Providers Care Fiction Writer Name Role Phone Case Management, [facility] Unavailable Advance Directives Directive Yes / No Effective Date File Name No Information Encounters Encounter Description Practice Location Reason(s) For Visit Diagnoses Date Provider Providers Copied on Encounter [facility], [address] [place] [address], [address], [place] tel:[phone] [facility] Adult Medicine No Information Case Management [facility]. . Family History Family Member Type [...]
[2025-01-16 11:40] LABS: CT PCR NOT DETECTED (Not Detect.); NG PCR NOT DETECTED (Not Detect.)
[2025-01-16 13:54] LABS: Bacterial Vaginosis PCR POSITIVE (Negative); Candida Group PCR NOT DETECTED (Not Detect); Candida glab krusei PCR NOT DETECTED (Not Detect); Trichomonas vaginalis PCR NOT DETECTED (Not Detect)
== END 2025-01-15 10:38 | disposition home or self-care (01) ==
LOC: HO.LAB 10:37
PROVIDERS: Advanced Practice Midwife; PCP Physician Assistant; Visit Provider Urology
DX: N89.8 Other specified noninflammatory disorders of vagina (principal); Z20.2 Contact with and (suspected) exposure to infections with a predominantly sexual mode of transmission; N36.1 Urethral diverticulum
CPT/HCPCS: 81003; 81515; 87491; 87591; 99202; 99212

== ENCOUNTER 2025-01-15 15:18 | Outpatient (AMB) | payer OTHER, SELFPAY ==
--- NOTE | 2025-01-15 15:18 | A.OFFVIS_ITS ---
Vital Signs 01/15/25 15:23 Height 5 ft 2 in Weight 210 lb BMI 38.4 BP 116/70 Intake Visit Reasons: TRIP Shock Absorption Floor Layer Required: No Shock Absorption Floor Layer Services: Shock Absorption Floor Layer Present Information Interpreted: clinical only Access Services Representative: Access Services Representative Present Allergies acetaminophen [From Excedrin Migraine] Allergy (Verified 01/15/25 15:23) Swelling aspirin [From Excedrin Migraine] Allergy (Verified 01/15/25 15:23) Swelling caffeine [From Excedrin Migraine] Allergy (Verified 01/15/25 15:23) Swelling ibuprofen Allergy (Verified 01/15/25 15:23) Swelling Is last menstrual period known: Yes Last menstrual period: 12/21/24 HPI HPI TRIP: Details: Here. She says she took the medicine (for the trichomoniasis) made her feel yucky. She is still feeling yucky. She had sex 2 weeks ago but used a condom. she also wants to talk about control she had been talking more thinking about an IUD previously but she said you need to wait to see how this turned o ut. She says she is pretty sure he took the medicine as he did mention how next you tasted also She saw the urologist today and she said there was a plan for her to have an MRI before any other study is done so they can see how it tracks inside and what it connects up to. She says the urologist told her it looks like it is just a pocketing a fluid. She says she did not tell the urologist about the trichomoniasis because she assumed she might have seen it in the chart. She says she thinks it has gotten bigger since she had her baby. PENDING SALE TO [facility] Medical History Hypoparathyroidism Asthma Social History Housing: Apartment Alcohol intake: never Patient Tobacco Use Status: Current everyday Tobacco user Cigarette Packs Per Day: 3 Years Smoked: 2 e-Cigarette/Vaping Use: Never Used Second Hand Smoke Exposure: No service: No Current occupational status: employed and unemployed Cognitive needs: No Hearing needs: No Vision needs: No Female Reproductive History Menstrual Age of Menarche: 10 Duration of menses: 3-5 days Date of last menstrual period: 12/21/24 Physical Exam Vital Signs: Last Vital Signs BP 116/70 01/15/25 15:23 BMI result Body Mass Index 38.4 Other: External vulva pink urethral cyst about size of the very large grape for very large all of no exudates from it. Discharge scant would swabbed for trichomoniasis as well as cervical swabs taken for gonorrhea. Await test cure negative plan menses positive treatment. Results AMB Urinalysis, Automated UA Leukoctes 0 Tara/uL Last Edit by LIZZ Pena on 01/15/25 11:37 UA Nitrite Negative Last Edit by LIZZ Pena on 01/15/25 11:37 UA Urobilinogen 3.5 mg/dL Last Edit by LIZZ Pena on 01/15/25 11:3 7 UA Protein 15 mg/dL Last Edit by LIZZ Pena on 01/15/25 11:37 UA pH 7.5 Last Edit by LIZZ Pena on 01/15/25 11:37 UA Blood 0 Red/uL Last Edit by LIZZ Pena on 01/15/25 11:37 UA Specific [place] 1.015 Last Edit by LIZZ Pena on 01/15/25 11: 37 UA Ketone Negative Last Edit by LIZZ Pena on 01/15/25 11:37 UA Bilirubin 0 mg/dL Last Edit by LIZZ Pena on 01/15/25 11:37 UA Glucose 0 mg/dL Last Edit by LIZZ Pena on 01/15/25 11:37 Results Reviewed Results Reviewed: RUN: 01/15/25 1536 PAGE 1 [facility] [address] [place] [id number] Product Inspection Supervisor: Krzysztof Ramon M.D. Specimen Inquiry Name: Harriet Bass Age/Sex: 39/F : 1985 Unit#: [id number] Attend Dr: Whitley Britton Radha SARAI Re11/11/24 Status: DEP REF Location: .LAB Disch: SPEC : [id number] HERMINIO: 11/11/24-UNK STATUS: COMP REQ : [id number] RECD: 11/11/24-[address]: Whitley Britton Radha [facility] COMP: 11/12/24-113 ENTERED: 11/11/24-[address]: Yuliya Foy ORDERED: BV Panel Test Result Flag Reference TV PCR DETECTED A Not Detect BV PCR POSITIVE A Negative The BV organism targets of the Xpert Xpress MVP test can be commensal in women; Xpert Xpress MVP positive results for bacterial vaginosis should be considered in conjunction with other clinical and patient information to determine the disease status. Organisms that are not detected by the Xpert Xpress MVP test have also been reported to be associated with BV and aerobic vaginitis. The Xpert Xpress MVP test performance has not been evaluated in patients under the age of 14. Debbie Grp PCR NOT DETECTED Not Detect Can gla-kru NOT DETECTED Not Detect END OF REPORT Assessment & Plan Assessment & Plan (1) Urethral cyst: Code(s): N36.8 - Other specified disorders of urethra Category: Medical (2) Trichomoniasis: Comment: From testing 11/11/2024-patient and any partner need treatment and then a test of cure for patient. Code(s): A59.9 - Trichomoniasis, unspecified Category: Medical (3) control counseling: Code(s): Z30.09 - Encounter for other general counseling and advice on contraception Category: Medical Plan Test of cure for the trichomoniasis was done today from vaginal secretions as well as attempt to see if any secretions would exceed from the urethral cyst was done to add to the specimen to for the test of cure but no exudates exuding from it. Discussed that sometimes an organism can be sequestered in an outpouching in maybe more challenging to treat, which is why I attempted to see any discharge would be excluded to be fqtngw-U-xam swab was held at the urethra during this and submitted for testing. Patient is on the portal she may see the results either positive or negative and I discussed that treatment would need to be repeated if it is positive. If it is negative however then perhaps we can discuss placement of her IUD with the next menses she gets heavy crampy periods. She had been considering ParaGard IUD as she had that past I just arrived the side effects of the ParaGard IUD in the Mirena IUD discussed that we would need to have her sign to order the ParaGard IUD. She is not anemic according to the records. She does however get crampy periods so describing the side effects of the Mirena IUD she thinks she would prefer that discussed that sometimes the hormonal mood people do not like she has not used hormonal method of control before. If she gets her period Over the weekend, and the trichomoniasis test is negative she should call Sunday see if possible for us to squeeze her for an IU D/Mirena insertion on Sunday. She is going to be awaiting prior authorization to have an MRI to evaluate the cyst from there further testing procedures may be ordered. Await results of test of cure for the trichomoniasis We will need re-treatment positive If negative trich plan for insertion of Mirena with next menses Orders: Orders CT NG by PCR Today N89.8 - Other specified noninflammatory disorders of vagina, Z20.2 - Contact with and (suspected) exposure to infections with a predominantly sexual mode of transmission Bacterial Vaginosis Panel Today N89.8 - Other specified noninflammatory disorders of vagina Coding Level of Care Code Est Pt Level 3 (87604) Diagnoses Urethral cyst N36.8 Trichomoniasis A59.9 control counseling Z30.09
[2025-01-15 15:23] VITALS: BP 116/70; BMI 38.4
--- OUTSIDE RECORDS SUMMARY | 2025-01-15 18:57 | XMS_ITS | Clinical Summary ---
Author Organization [facility] Address [address] [place] [address] Care Team Providers Care Stitcher Standard Machine Name Role Phone Mis Tavarez PA-C Primary Care Provider Source Comments PLEASE NOTE, if this patient is a minor, it may be UNLAWFUL to discuss sensitive information that is contained in these records (such as FAMILY PLANNING, MENTAL HEALTH or SUBSTANCE ABUSE) with the minor patient's parent or other person without the patient's specific authorization.[facility] Allergies Active Allergy Reactions Criticality Noted Date Comments Acetaminophen-Caffeine 11/16/2021 Ibuprofen 11/16/2021 Medications PROAIR HFA 90 mcg/actuation inhaler INHALE 1 PUFF BY MOUTH EVERY 6 HOURS NEEDED FOR SHORTNESS OF BREATH OR WHEEZING 07/25/20 22 Active fluticasone (FLONASE) 50 mcg/actuation nasal sprayIndications:C hronic seasonal allergic rhinitis Place 1 [place] in both nostrils once daily 16 g 10/19/20 22 Active cetirizine (ZYRTEC) 10 mg tabletIndications: Chronic seasonal allergic rhinitis Take 1 Tablet by mouth once daily 10/19/20 22 Active diclofenac sodium (VOLTAREN) 1 % gelIndications:Acu te pain of left knee Apply 2 g topically 2 (two) times daily 100 g 10/19/20 22 Active EPINEPHrine (EPIPEN) 0.3 mg/0.3 mL pen injectorIndication s:Anaphylaxis, subsequent encounter Inject 0.3 mL into the muscle as needed for anaphylaxis 1 Each 1 10/19/20 22 Active therapeutic multivitamin (THEREMS) tabIndications:vit hernandes deficiency Take 1 Tablet by mouth once daily Indications: vitamin deficiency 90 Tablet 1 01/18/20 23 Active levothyroxine 88 mcg tabletIndications: Acquired hypothyroidism Take 1 Tablet by mouth once daily 90 Tablet 1 01/23/20 23 Active zxufre85-kcvv fum-folic ac-om3 28-800-440 mg-mcg-mg combo packIndications:Fa luis planning Take 1 Tablet by mouth once daily 90 Each 3 01/24/20 Active multivitamin (THEREMS-M) 9 mg iron-400 mcg tab TAKE 1 TABLET BY MOUTH DAILY 90 Tablet 3 06/29/20 23 Active Active Problems Problem Noted Date Diagnosed Date Chronic seasonal allergic rhinitis 10/19/2022 Acquired hypothyroidism 11/22/2021 Immunizations Name Administration Dates Next Due Flu, Preservative Free 10/19/2022 INFLUENZA, SEASONAL, INJECTABLE 09/16/2012 TDAP 09/16/2012 Family History Medical History Relation Name Comments No Known Problems Daughter 1 No Known Problems Daughter 2 No Known Problems Daughter 3 HIV/AIDS Father Hepatitis C Father Asthma Maternal Grandmother Heart attack Maternal Grandmother Asthma Mother HIV/AIDS Mother Lung Cancer Mother vulvar cancer Mother Relation Name Status Comments Daughter 1 Alive Daughter 2 Alive Daughter 3 Alive Father Alive Maternal Grandmother Alive Mother Social History Tobacco Use Types Packs/Day Years Used Date Smoking Tobacco: Some Days Cigarettes Smokeless Tobacco: Never Tobacco Cessation:Ready to Q uit: Not Asked; Counseling Given: Not Answered Comments:Pt smokes when she drinks only Alcohol Use Standard Drinks/Week Comments Yes 0 (1 standard drink = 0.6 oz pur e alcohol) occasionally Social Connections Answer Date Recorded Connectedness 0 01/17/2023 Financial Resource Strain Answer Date R ecorded Financial Resource Strain 0 2022 Stress Answer Date Recorded Stress 0 01/17/2023 Physical Activity Answer Date Recorded Physical Activity 0 11/16/2021 Food Insecurity Answer Date Recorded Food 0 01/17/2023 Transportation Needs Answer Date Record ed Transportation 0 01/17/2023 Housing Stability Answer Date Recorded Housing 0 01/17/2023 Safety and Environment Answer Date Dre rded Safety 0 01/17/2023 Utilities Answer Date Recorded Utilities 0 01/17/2023 Employment Answer Date Recorded Stress 0 10/19/2022 Comments No Sex and Gender Information Value Date Recorded Sex Assigned at Female 11/22/2021 5:05 AM PST Legal Sex Female 11:36 AM PDT Gender Identity Female 11/22/2021 5:05 AM PST Sexual Orientation Straight 11/22/2021 5: 05 AM PST Last Filed Vital Signs Vital Sign Reading Time Taken Comments Blood Pressure 115/72 01/23/2023 1:21 PM EDT Pulse 97 01/23/2023 1:21 PM EDT Temperature 36.6 ??C (97.9 ??F) 01/23/2023 1:21 PM ED T Respiratory Rate 16 01/23/2023 1:21 PM EDT Oxygen Saturation 99% 01/23/2023 1:21 PM EDT Inhaled Oxygen Concentration - - Weight 118.4 kg (261 lb) 02/05/2023 10:21 AM EDT Height 157.5 cm (5' 2 ) 02/05/2023 10:21 AM EDT Body Mass Index 47.74 02/05/2023 10:21 AM EDT Plan of Treatment Health Maintenance Due Date Last Done Comments HPV Screening 1985 Imm-Hepatitis B (1 of 3 - 19 + 3-dose series) 2004 Imm-Pneumococcal (1 of 2 - PCV) 2004 Imm-DTaP/Tdap/Td (2 - Td or Tdap) 09/16/2022 012 Tobacco Screening 11/16/2022 11/16/2021 Tobacco Cessation Counseling (#1) 01/17/2024 022 Relationship Safety Screening/Counseling 01/18/2024 01/17/2023, 10/19/2022 TSH Monitoring 01/18/2024 01/17/2023, 01/03, 01/17/2023, Additional history exists Annual Preventive Care Visit 01/24/2024 01/23/2023, 01/17/2023 Kat-ALPWL-31 ( season) 2024 Imm-Influenza (#1) 2024 10/19/2022, 09/16/2012 Alcohol and Drug Screen 11/05/2024 01/17/2023, 10/19 Depression Annual Screen 11/05/2024 01/17/2023 Diabetes Screening 01/17/2026 01/17/2023, 0 11/18/2021, 11/18/2021 Hypertension Screening (#1) 01/22/2026 Pap Smear 01/23/2026 01/23/2023 Cervical Cancer Screening 01/24/2028 Pap + HPV 01/24/2028 01/23/2023 HIV Screening Completed 01/17/2023 Hepatitis C Screening Completed 01/17/2023 Cervical Ablation/Cold-Knife Conization Discontinued Cervical Cryotherapy Discontinued Colposcopy Discontinued Endometrial Biopsy Discontinued Excision/Leep Discontinued HPV Genotyping Discontinued Vaginal Pap Discontinued Vulvoscopy Discontinued Procedures Procedure Name Priority Date/Time Associated Diagnosis Comments THINPREP PAP & HPV MRNA E6/E7 RFLX HPV 16,18/[address]/NG Routine 01/23/2023 1:54 PM EDT Encounter for Papanicolaou smear of vagina as part of routine gynecological examination Encounter for screening for human papillomavirus (HPV) HIV 1/2 AG & AB W/RFLX (4TH GEN) Routine 01/17/2023 10:32 AM EDT Screening for viral disease THYROID CASCADING REFLEX PANEL Routine 01/17/2023 10:32 AM EDT Acquired hypothyroidism HEPATITIS C AB W/RFLX HCV RNA, QT, RT PCR Routine 01/17/2023 10:32 AM EDT Screening for viral disease COMPREHENSIVE METABOLIC PANEL Routine 01/17/2023 10:32 AM EDT Encounter for annual physical exam from Last 3 Months or Most Recently Relevant to Health Maintenance Results * THINPREP PAP & HPV MRNA E6/E7 RFLX HPV 16,18/[address]/NG (01/23/2023 1:54 PM EDT) CHLAMYDIA TRACHOMATIS RNA, TMA NOT DETECTED NOT DETECTED [facility] NEISSERIA GONORRHOEAE RNA, TMA NOT DETECTED NOT DETECTED [facility] COMMENT [facility] CLINICAL INFORMATION See Note [facility] Comment:Routine exam LMP See Note [facility] Comment:[id number] PREV. PAP See Note [facility] Comment:NONE GIVEN PREV. BX See Note [facility] Comment:NONE GIVEN SOURCE See Note [facility] Comment:Cervix STATEMENT OF ADEQUACY See Note [facility] Comment: Satisfactory for evaluation. Endocervical/transformation zone component absent. INTERPRETATION/RESU LT See Note [facility] Comment:Negative for intraep ithelial lesion or malignancy. INFECTION See Note [facility] Comment: Bacteria morphologically consistent with Actinomyces spp. HOUSING PROJECT MANAGER See Note [facility] [employer] [facility] Comment: KF, CT(ASCP) CT screening location: [address] ??[address] COMMENT [facility] HPV MRNA E6/E7 Not Detected Not Detected [facility] Comment: Methodology: Lead Designer-Mediated Amplification This assay detects E6/E7 viral messenger RNA (mRNA) from 14 high-risk HPV types (16,18,31,33,35,39,45,51,52,56,58,59,66,68). Cervical sources are required for HPV testing. If a vaginal source from a patient who has had a total hysterectomy with removal of cervix was submitted, please contact the testing laboratory for alternative testing options. For additional information, please refer to http://[facility].TakeCharge/faq/QFE615p1 (This link if provided for information/ educational purposes only.) CYTOLOGY Cervix uteri structure / Unknown 01/23/2023 1:54 PM EDT 01/24/2023 1:34 AM EDT Narrative [facility] - 01/25/2023 4:02 PM EDT EXPLANATORY NOTE: The Pap is a screening test for cervical cancer. It is not a diagnostic test and is subject to false negative and false positive results. It is most reliable when a satisfactory sample, regularly obtained, is submitted with relevant clinical findings and history, and when the Pap result is evaluated along with historic and current clinical information. The analytical performance characteristics of this assay, when used to test SurePath(TM) specimens have been determined by [facility]. The modifications have not been cleared or approved by the FDA. This assay has been validated pursuant to the CLIA regulations and is used for clinical purposes. For additional information, please refer to https://[facility].TakeCharge/faq/SYN372 (This link is being provided for information/ educational purposes only.) Sabrina Obrien MD LAB - NO BLOOD DRAW Final Result [facility] [address] [address], [facility] [address] [address] * HEPATITIS C AB W/RFLX HCV RNA, QT, RT PCR (01/17/2023 10:32 AM EDT) Pathologist [facility] HEPATITIS C ANTIBODY NON-REACT JAIME NON-REACT JAIME [facility] SIGNAL TO CUT-OFF 0.02 <1.00 [facility] Comment: HCV antibody was non-reactive. There is no laboratory evidence of HCV infection. In most cases, no further action is required. However, if recent HCV exposure is suspected, a test for HCV RNA (test code 09501) is suggested. For additional information please refer to http://education.TakeCharge/faq/UPS22y1 (This link is being provided for informational/ educational purposes only.) Blood Blood / Unknown 01/17/2023 1 0:32 AM EDT 01/17/2023 10:35 AM EDT Narrative [facility] - 01/24/2023 8:13 PM EDT FASTING:YES Mis Tavarez PA-C LAB - BLOOD DRAW Edited Resu lt - Final [facility] [address] [place] [address], [facility] [address] [address] * HIV 1/2 AG & AB W/RFLX (4TH GEN) (01/17/2023 10:32 AM EDT) [facility] HIV AG/AB, 4TH GEN NON-REAC TIVE NON-REAC TIVE [facility] Comment: HIV-1 antigen and HIV-1/HIV-2 antibodies were not detected. There is no laboratory evidence of HIV infection. PLEASE NOTE: This information has been disclosed to you from records whose confidentiality may be protected by state law. ??If your state requires such protection, then the state law prohibits you from making any further disclosure of the information without the specific written consent of the person to whom it pertains, or as otherwise permitted by law. A general authorization for the release of medical or other information is NOT sufficient for this purpose. ?? For additional information please refer to http://education.TakeCharge/faq/VHA309 (This link is being provided for informational/ educational purposes only.) The performance of this assay has not been clinically validated in patients less than 2 years old. Blood Blood / Unknown 01/17/2023 1 0:32 AM EDT 01/17/2023 10:35 AM EDT Narrative [facility] - 01/24/2023 8:13 PM EDT FASTING:YES us Mis Tavarez PA-C LAB - BLOOD DRAW Final Resul t Performing Organization Address [facility] de Phone Number [facility] [place] [employer] [address] [place] [address], [facility] [address] [address] * (ABNORMAL) THYROID CASCADING REFLEX PANEL (01/17/2023 10:32 AM EDT) TSH 36.97(H) 0.40 - 4.50 mIU/L [facility] Comment: ?Reference Range ?> or = 20 Years ??0.40-4.50 ? Ranges ?First trimester ?0.26-2.66 ?Second trimester ?? 0.55-2.73 ?Third trimester ?0.43-2.91 Blood Blood / Unknown 01/17/2023 1 0:32 AM EDT 01/17/2023 10:35 AM EDT Narrative [facility] - 01/24/2023 8:13 PM EDT FASTING:YES us Mis Tavarez PA-C LAB - BLOOD DRAW Edited Resu lt - Final Performing Organization Address [facility]/ZIP Co de Phone Number [facility] [address] [address], [facility] [address] [place] [address] * COMPREHENSIVE METABOLIC PANEL (01/17/2023 10:32 AM EDT) GLUCOSE 94 65 - 99 mg/dL [facility] Comment: ?Fasting reference interval UREA NITROGEN (BUN) 25 7 - 25 mg/dL [facility] CREATININE (blood) 0.72 0.50 - 0.97 mg/dL [facility] EGFR 110 > OR = 60 mL/min/1 .73m2 [facility] Comment: The eGFR is based on the CKD-EPI 2020 equation. To calculate the new eGFR from a previous Creatinine or Cystatin C result, go to https://www.kidney.org/professionals/ kdoqi/gfr%5Fcalculator BUN/CREATININE RATIO NOT APPLICABLE [facility] SODIUM 138 135 - 146 mmol/L [facility] POTASSIUM 4.2 3.5 - 5.3 mmol/L [facility] CHLORIDE 106 98 - 110 mmol/L [facility] CARBON DIOXIDE 25 20 - 32 mmol/L [facility] CALCIUM 9.6 8.6 - 10.2 mg/dL [facility] PROTEIN, TOTAL 7.4 6.1 - 8.1 g/dL [facility] ALBUMIN 4.6 3.6 - 5.1 g/dL [facility] GLOBULIN 2.8 1.9 - 3.7 g/dL (calc) [facility] ALBUMIN/GLOBUL IN RATIO 1.6 1.0 - 2.5 (calc) [facility] BILIRUBIN, TOTAL 0.3 0.2 - 1.2 mg/dL [facility] ALKALINE PHOSPHATASE 53 31 - 125 U/L [facility] AST 14 10 - 30 U/L [facility] ALT 13 6 - 29 U/L [facility] Blood Blood / Unknown 01/17/2023 1 0:32 AM EDT 01/17/2023 10:35 AM EDT Narrative [facility] - 01/24/2023 8:13 PM EDT FASTING:YES us Mis Tavarez PA-C LAB - BLOOD DRAW Edited Resu lt - Final [facility] [address] [address], [facility] [address] [place] [address] from Last 3 Months or Most Recently Relevant to Health Maintenance Insurance [address] [employer] Care Teams Stitcher Standard Machine Relationship Specialty Start Date End Date Mis Tavarez PA-C [address] [place] [address] PCP - General FAMILY MEDICINEKASSANDRA 03/28/22
--- OUTSIDE RECORDS SUMMARY | 2025-01-15 18:57 | XMS_ITS | Continuity of Care Document ---
Author Organization [facility] vices Address [address] [place] [address] Phone Care Team Providers Care Coverage Specialist Name Role Phone Case Management, [facility] Unavailable Advance Directives Directive Yes / No Effective Date File Name No Information Encounters Encounter Description Practice Location Reason(s) For Visit Diagnoses Date Provider Providers Copied on Encounter [facility], [address] [place] [address], [address], [place] tel:[phone] [facility] Adult [facility] No Information Case Management [facility]. . Family History Family Member Type Diagnosis Age At Onset No Information Payers Payer name Insurance type Covered democrat ID Authoriza tion(s) No Information Social History [...]
== END 2025-01-15 16:05 | disposition home or self-care (01) ==
LOC: HO.HWSM 15:18
PROVIDERS: PCP Physician Assistant; Visit Provider Advanced Practice Midwife
DX: N36.8 Other specified disorders of urethra (principal); A59.9 Trichomoniasis, unspecified; Z30.09 Encounter for other general counseling and advice on contraception
CPT/HCPCS: 99213

== ENCOUNTER 2025-04-23 15:08 | Outpatient (AMB) | payer OTHER, SELFPAY ==
--- OUTSIDE RECORDS SUMMARY | 2015-04-14 09:17 | XMS_ITS | Continuity of Care Document ---
Author Organization [facility] vices Address [address] [place] [address] Phone Care Team Providers Care Operations Developer Name Role Phone Case Management, [facility] Unavailable Advance Directives Directive Yes / No Effective Date File Name No Information Encounters Encounter Description Practice Location Reason(s) For Visit Diagnoses Date Provider Providers Copied on Encounter [facility], [address] [place] [address], [address], [place] tel:[phone] [facility] Adult Medicine No Information Case Management [facility]. . Family History Family Member Type Diagnosis Age At Onset No Information Payers Payer name Insurance type Covered constitution party ID Authoriza tion(s) No Information Social History Type Description Quantity Date Captured Comments Sex Female Smoking Status No Information Chief Complaint And Reason For Visit No Information Reason For Referral Reason For Referral No Information History Of Present Illness Encounter Date Complaint History Of Prese nt Illness No Information Functional Status Date Functional Assessmen t No Information Instructions Date Instruction Additional Infor mation No Information Assessments Type Assessment Date No Information Patient Care Teams Name Effective Dates (start - stop) Status Members No Information
--- NOTE | 2025-04-23 15:40 | MHC.PC.OV ---
Vital Signs 04/23/25 15:42 Height 5 ft 2 in Weight 210 lb BMI 38.4 BP 104/82 Blood Pressure Location Lt brachial Position Sitting Respiration 14 Pulse 78 Pulse Source Pulse Oximeter Temp 98.1 F Temp Source Oral Pulse Oximetry (%) 97 Oxygen Delivery Method Room Air Intake Visit Reasons: senuis infection Intake Note: Sinus pressure, itching. Symptoms for about a week. Feeling fatigued the past month, thinks may need adjustment in levothyroxine. Costing Manager Required: No Allergies acetaminophen (From Excedrin Migraine) Allergy (Verified 04/23/25 15:40) Swelling aspirin (From Excedrin Migraine) Allergy (Verified 04/23/25 15:40) Swelling caffeine (From Excedrin Migraine) Allergy (Verified 04/23/25 15:40) Swelling ibuprofen Allergy (Verified 04/23/25 15:40) Swelling Tobacco use date assessed: 04/23/25 Dental Screening Dental Screen Date: 04/23/25 Did you have a dental visit in the last 12 months?: Yes Did you have a dental problem in the last 6 months where you did not have access to dental care?: No Was dental information given to patient?: Patient has dentist HPI senuis infection HPI Details patient is a 39-year-old female who presents today for an acute problem visit regarding a possible sinus infection. HEENT: States that for the last month she has been struggling with allergies. She has been using Flonase regularly in an intermittent antihistamine without improvement. She states that for the last couple of weeks she has been persistently congested in her maxillary sinuses are tender. Her ears are intermittently popping. She says it just feels like she is getting worse. No documented fever but does feel warm at time with her sinus symptoms. She denies any swollen lymph nodes, cough, nausea, vomiting or diarrhea. No dizziness. No known sick contacts. Psych: She is tearful today in the office and states that she has been much more emotional lately. She is struggling with motivation and energy. She says at times she is also irritable. It is just her and her 3 daughters and she is the sole caregiver for her children. She does not have a lot of support. No SI/ HI. She states that her daughter last year was cutting herself and on medications and has been doing a lot better but everything seems to be compounding and she is feeling overwhelmed. She states that her mind races with all the different things that she has to do. She feels like she then just shuts down and does not do some of them. Endo: Last TSH was elevated. Her levothyroxine was increased to 125 mcg. She has not yet returned to have this rechecked. She does report feeling tired but is unsure if it is related to stress or her thyroid. She is compliant with her medication. 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 Current occupational exposures/hazards: No Cognitive needs: No Hearing needs: No Vision needs: No Female Reproductive History Menstrual Age of Menarche: 10 Questionnaire PHQ-9 Over the last 2 weeks, how often have you been bothered by any of the following problems? 1. Little interest or pleasure in doing things: several days 2. Feeling down, depressed, or hopeless: more than half the days 3. Trouble falling or staying asleep, or sleeping too much: more than half the days 4. Feeling tired or having little energy: nearly every day 5. Poor appetite or overeating: more than half the days 6. Feeling bad about yourself - or that you are a failure or have let yourself or your family down: more than half the days 7. Trouble concentrating on things, such as reading the newspaper or watching television: nearly every day 8. Moving or speaking so slowly that other people could have noticed. Or the opposite - being so fidgety or restless that you have been moving around a lot more than usual: more than half the days 9. Thoughts that you would be better off or of hurting yourself in some way: not at all Total score: 17 Depression Screening Interpretation: Positive Depression Screening Follow-up: Existing condition, New Medication prescribed and Follow-up Visit Requested Depression Screening Done: Yes 54817 - PHQ-9 Billing: Yes Source: Developed by Drs. Candido Perdue, Rosetta Justin, Luca Bright and colleagues, with an educational domitila from [employer]. Thrive Questionnaire Date Thrive assessed: 04/23/25 I am a: Patient What is your living situation today?: I have a steady place to live Within the past 12 months, did the food you bought not last and you didn't have the money to get more?: Sometimes True Within the past 12 months, did you worry whether your food would run out before you got money to buy more?: Sometimes True Do you have trouble paying for medicines?: No Do you have trouble getting transportation to medical appointments?: No Do you have trouble paying your heating and electricity bill?: No Do you have trouble taking care of your child, family member or friend?: No Do you have trouble with day-to-day activities such as bathing, preparing meals, shopping, managing finances, etc.?: No Are you currently unemployed and looking for a job?: Yes Are you interested in more education?: No Please select the resources that you would like help with: Daily support Currently or been in a relationship where the following occur: No concerns reported THRIVE Score: 2 AUDIT C Alcohol Use Questionnaire (AUDIT-C) 1. How often do you have a drink containing alcohol?: 2-4 times a month 2. How many drinks containing alcohol do you have on a typical day when you are drinking?: 3 or 4 3. How often do you have six or more drinks on one occasion?: Monthly Total Score: 5 RYAN-7 AMB Questionnaire RYAN-7 Date RYAN - 7 assessed: 04/23/25 Feeling nervous, anxious, or on edge: 2 = More than half the days Not being able to stop or control worryin = More than half the days Worrying too much about different things: 3 = Nearly every day Trouble relaxin = Nearly every day Being so restless that it is hard to sit still: 3 = Nearly every day Becoming easily annoyed or irritable: 3 = Nearly every day Feeling afraid as if something awful might happen: 2 = More than half the days Total RYAN-7 score (0-4 normal; 5-9 mild; 10-14 moderate; 15-21 severe): 18 Source: Developed by Drs. Candido Perdue, Rosetta Justin, Luca Bright and colleagues, with an educational domitila from [employer]. RYAN-7 Assessment Billing RYAN-7 Assessment Tool: RYAN-7 Assessment 53253 Physical exam (Primary Care) Vital Signs: Last Vital Signs Temp 98.1 F 04/23/25 15:42 Pulse 78 04/23/25 15:42 Resp 14 04/23/25 15:42 BP 104/82 04/23/25 15:42 Pulse Ox 97 04/23/25 15:42 Oxygen Delivery Method Room Air 04/23/25 15:42 BMI result Body Mass Index 38.4 Tobacco/Smoking Status: Tobacco use Status Tobacco use date assessed 04/23/25 04/23/25 15:46 Patient Tobacco Use Status Current everyday Tobacco 04/23/25 15:46 e-Cigarette/Vaping Use Never Used 04/23/25 15:46 PHQ-9: PHQ-9 Score PHQ-9: Total score 17 04/23/25 15:56 Depression Screening Interpretation: Positive Depression Screening Follow-up: Existing condition, New Medication prescribed and Follow-up Visit Requested Thrive Assessment: Date of Thrive Assessment Date Thrive assessed 04/23/25 04/23/25 15:56 Currently or been in a relationship where the following occur: No concerns reported Const Orientation/consciousness: patient oriented x3 HENMT Other: TMs are dome-shaped. Small air-fluid levels noted. Maxillary sinus tenderness present bilaterally. Oral mucosa moist. No exudates in the posterior oropharynx. Ears: hearing grossly normal bilaterally Neck Thyroid: Thyroid normal Lymphatic: no lymphadenopathy noted Resp Auscultation: clear to auscultation bilaterally Cardio Rate: regular rate Rhythm: regular rhythm Heart sounds: S1 normal heart sound present and S2 normal heart sound present GI Inspection: Yes normal to inspection Palpation (GI): Soft to palpation and Other GI palpation findings present (nontender, no cva tenderness) Auscultation: normoactive bowel sounds Rectal Exam - Female: deferred Skin General skin exam: no rashes or lesions noted Neuro General: patient oriented x3, gait normal and no focal motor deficits Coding Level of Care Code Est Pt Level 4 (29300) Complex EM visit Add On G2211 Diagnoses Hypothyroidism, unspecified type E03.9 Hypothyroidism type: unspecified IFG (impaired fasting glucose) R73.01 Fatigue R53.83 Depression with anxiety F41.8 Bacterial sinusitis J32.9; B96.89 Additional Codes RYAN-7 Assessment Billing - RYAN-7 Assessment Tool: RYAN-7 Assessment 64403 ([id number]) PHQ-9 - 31418 - PHQ-9 Billing: Yes ([id number]) Assessment & Plan Assessment & Plan (1) Hypothyroidism: Code(s): E03.9 - Hypothyroidism, unspecified Category: Medical Qualifiers: Hypothyroidism type: unspecified Qualified Code(s): E03.9 - Hypothyroidism, unspecified Plan: TSH reordered today. Advised to complete this. Continue with the levothyroxine. I will increase dose if needed (2) IFG (impaired fasting glucose): Code(s): R73.01 - Impaired fasting glucose Category: Medical Plan: labs ordered today. We will check A1c (3) Fatigue: Code(s): R53.83 - Other fatigue Category: Medical Plan: as above. Labs ordered. (4) Depression with anxiety: Code(s): F41.8 - Other specified anxiety disorders Category: Medical Plan: We will start Wellbutrin. Discussed risks and benefits and adverse effects of this medication. Short term follow up advised. Advised to seek emergent medical treatment should she develop any SI/ HI. (5) Bacterial sinusitis: Code(s): J32.9 - Chronic sinusitis, unspecified; B96.89 - Other specified bacterial agents as the cause of diseases classified elsewhere Plan: We will start Augmentin. Continue Flonase. We will start Xyzal. Follow up if no improvement or if anything worsens or changes. Advised to take a probiotic while taking an antibiotic. Orders: Orders Hemoglobin A1c 04/23/25 E03.9 - Hypothyroidism, unspecified, R53.83 - Other fatigue, R73.01 - Impaired fasting glucose Complete Blood Count Auto Diff 04/23/25 E03.9 - Hypothyroidism, unspecified, R53.83 - Other fatigue, R73.01 - Impaired fasting glucose Comprehensive [place]. Panel Fast 04/23/25 E03.9 - Hypothyroidism, unspecified, R53.83 - Other fatigue, R73.01 - Impaired fasting glucose Vitamin B12 and Folate 04/23/25 E03.9 - Hypothyroidism, unspecified, R53.83 - Other fatigue, R73.01 - Impaired fasting glucose IRON PROFILE 04/23/25 E03.9 - Hypothyroidism, unspecified, R53.83 - Other fatigue, R73.01 - Impaired fasting glucose TSH reflex Free T4 04/23/25 E03.9 - Hypothyroidism, unspecified, R53.83 - Other fatigue, R73.01 - Impaired fasting glucose Ferritin 04/23/25 E03.9 - Hypothyroidism, unspecified, R53.83 - Other fatigue, R73.01 - Impaired fasting glucose Medications: New amoxicillin-pot clavulanate 875-125 mg 1 tab PO Q12H 20 tabs 0RF levocetirizine (Xyzal) 5 mg PO QPM PRN 90 tabs 0RF allergy symptoms bupropion HCl XL (Wellbutrin XL) 150 mg PO QAM 90 tabs 0RF
[2025-04-23 15:42] VITALS: BP 104/82; PULSE 78; RESP 14; TEMP 36.7; O2SAT 97; BMI 38.4
== END 2025-04-23 16:07 | disposition home or self-care (01) ==
PROVIDERS: PCP Physician Assistant; Visit Provider Physician Assistant
DX: E03.9 Hypothyroidism, unspecified (principal); R73.01 Impaired fasting glucose; R53.83 Other fatigue; F41.8 Other specified anxiety disorders; J32.9 Chronic sinusitis, unspecified; B96.89 Other specified bacterial agents as the cause of diseases classified elsewhere

== ENCOUNTER → 2025-04-23 15:08 | Outpatient (BNVA) | payer OTHER, SELFPAY | PROVIDERS: PCP Physician Assistant; Visit Provider Physician Assistant | DX: J32.9 Chronic sinusitis, unspecified (principal); B96.89 Other specified bacterial agents as the cause of diseases classified elsewhere; E03.9 Hypothyroidism, unspecified; R73.01 Impaired fasting glucose; R53.83 Other fatigue; F41.8 Other specified anxiety disorders; Z79.899 Other long term (current) drug therapy; Z13.31 Encounter for screening for depression; Z13.30 Encounter for screening examination for mental health and behavioral disorders, unspecified | CPT/HCPCS: 96127; 99212 ==

== ENCOUNTER 2025-06-12 14:46 | Outpatient (REF) | payer OTHER, SELFPAY ==
--- OUTSIDE RECORDS SUMMARY | 2015-04-14 09:17 | XMS_ITS | Continuity of Care Document ---
Author Organization [facility] vices Address [address] [place] [address] Phone Care Team Providers Care Air Control Electronics Operator Name Role Phone Case Management, [facility] Unavailable Advance Directives Directive Yes / No Effective Date File Name No Information Encounters Encounter Description Practice Location Reason(s) For Visit Diagnoses Date Provider Providers Copied on Encounter [facility], [address] [place] [address], [address], [place] tel:[phone] [facility] Adult Medicine No Information Case Management [facility]. . Family History Family Member Type Diagnosis Age At Onset No Information Payers Payer name Insurance type Covered green party ID Authoriza tion(s) No Information Social [...]
--- OUTSIDE RECORDS SUMMARY | 2025-06-12 14:49 | XMS_ITS | Clinical Summary ---
Author Organization [facility] Address [address] [place] [address] Care Team Providers Care Loan Coordinator Name Role Phone Mis Tavarez PA-C Primary [...] sprayIndications:C hronic seasonal allergic rhinitis Place 1 [place] in both nostrils once daily 16 g [...] daily 90 Tablet 1 01/23/20 23 Active [id number] fum-folic ac-om3 28-800-440 mg-mcg-mg combo packIndications:Fa luis planning Take 1 Tablet by mouth once daily 90 Each 3 01/24/20 Active multivitamin (THEREMS-M) 9 mg iron-400 mcg tab TAKE 1 TABLET BY MOUTH DAILY 90 Tablet 3 06/29/20 23 Active Active Problems Problem Noted Date Diagnosed Date Chronic seasonal allergic rhinitis 10/19/2022 Acquired hypothyroidism 11/22/2021 Immunizations Immunization Administration Dates Next Due Flu, Preservative Free [...] 97 01/23/2023 1:21 PM EDT Temperature 36.6 C (97.9 F) 01/23/2023 1:21 PM EDT Respiratory Rate 16 01/23/2023 1:21 PM EDT [...] 11/16/2021 Tobacco Cessation Counseling (#1) 01/17/2024 022 Anxiety Screening 01/18/2024 01/17/2023 Relationship Safety Screening/Counseling 01/18/2024 01/17/2023, 10/19/2022 TSH Monitoring 01/18/2024 01/17/2023, 01/03, 01/17/2023, Additional history exists Annual Wellness (Adult): Indicated (All Coverage) 01/24/2024 01/23/2023, 01/17/2023 [id number] ( season) 2024 Alcohol and Drug Screen 11/05/2024 01/17/2023, 10/19 Depression Annual Screen 11/05/2024 01/17/2023 Imm-Influenza (#1) 2025 10/19/2022, 09/16/2012 Diabetes Screening 01/17/2026 01/17/2023, 0 11/18/2021, 11/18/2021 [...] TRACHOMATIS RNA, TMA NOT DETECTED NOT DETECTED [employer] NEISSERIA GONORRHOEAE RNA, TMA NOT DETECTED NOT DETECTED [employer] COMMENT [employer] CLINICAL INFORMATION See Note [employer] Comment:Routine exam LMP See Note [employer] Comment:[id number] PREV. PAP See Note [employer] Comment:NONE GIVEN PREV. BX See Note [employer] Comment:NONE GIVEN SOURCE See Note [employer] Comment:Cervix STATEMENT OF ADEQUACY See Note [employer] Comment: Satisfactory for evaluation. Endocervical/transformation zone component absent. INTERPRETATION/RESU LT See Note [employer] [facility] Comment:Negative for intraep ithelial lesion or malignancy. INFECTION See Note [employer] [facility] Comment: Bacteria morphologically consistent with Actinomyces spp. PAROLE SUPERVISOR See Note [facility] [employer] [facility] Comment: KF, CT(ASCP) CT screening location: [address] [address] COMMENT [employer] [facility] HPV MRNA E6/E7 Not Detected Not Detected [employer] [facility] Comment: Methodology: Doll Wig Maker Rooted Hair-Mediated Amplification This assay detects E6/E7 viral messenger RNA (mRNA) from 14 high-risk HPV types (16,18,31,33,35,39,45,51,52,56,58,59,66,68). Cervical sources are required for HPV testing. If a vaginal source from a patient who has had a total hysterectomy with removal of cervix was submitted, please contact the testing laboratory for alternative testing options. For additional information, please refer to http://[employer]/faq/SGM719d5 (This link if provided for information/ educational purposes only.) CYTOLOGY Cervix uteri structure / Unknown 01/23/2023 1:54 PM EDT 01/24/2023 1:34 AM EDT Narrative [employer] - 01/25/2023 4:02 PM EDT EXPLANATORY NOTE: [...] test SurePath(TM) specimens have been determined by [employer]. The modifications have not been cleared or approved by the FDA. This assay has been validated pursuant to the CLIA regulations and is used for clinical purposes. For additional information, please refer to https://[employer]/faq/RBY664 (This link is being provided for information/ educational purposes only.) Sabrina Obrien MD LAB - PATHOLOGY AND CYTOLOGY AMB ULATORY Final Result [facility] [address] [address], [facility] [address] [address] * Hep C Ab w/Rflx (01/17/2023 10:32 AM EDT) Pathologist [facility] HEPATITIS C ANTIBODY NON-REACT JAIME NON-REACT JAIME [facility] SIGNAL TO CUT-OFF 0.02 <1.00 [employer] Comment: HCV antibody was non-reactive. There is no laboratory evidence of HCV infection. In most cases, no further action is required. However, if recent HCV exposure is suspected, a test for HCV RNA (test code 63182) is suggested. For additional information please refer to http://education.[employer]/faq/ILP33q3 (This link is being provided for informational/ educational purposes only.) Blood Blood / Unknown 01/17/2023 1 0:32 AM EDT 01/17/2023 10:35 AM EDT Narrative [facility] - 01/24/2023 8:13 PM EDT FASTING:YES us Mis Tavarez PA-C LAB - BLOOD DRAW Edited Resu lt - Final [facility] [address] [address], [employer] [facility] [address] [address] * HIV Screen (01/17/2023 10:32 AM EDT) Pathologist [facility] HIV AG/AB, 4TH GEN NON-REAC TIVE NON-REAC TIVE [employer] Comment: HIV-1 antigen and HIV-1/HIV-2 antibodies were not detected. There is no laboratory evidence of HIV infection. PLEASE NOTE: This information has been disclosed to you from records whose confidentiality may be protected by state law. If your state requires such protection, then the state law prohibits you from making any further disclosure of the information without the specific written consent of the person to whom it pertains, or as otherwise permitted by law. A general authorization for the release of medical or other information is NOT sufficient for this purpose. For additional information please refer to http://education.[employer]/faq/NRU874 (This link is being provided for informational/ educational purposes only.) The performance of this assay has not been clinically validated in patients less than 2 years old. Blood Blood / Unknown 01/17/2023 1 0:32 AM EDT 01/17/2023 10:35 AM EDT Narrative [facility] - 01/24/2023 8:13 PM EDT FASTING:YES [employer] Mis Tavarez PA-C LAB - BLOOD DRAW Final Resul t Performing Organization Address [facility] de Phone Number [facility] [address] [address], [place] [address] [address] * (ABNORMAL) Thyroid cascading reflex panel (01/17/2023 10:32 AM EDT) TSH 36.97(H) 0.40 - 4.50 mIU/L [employer] Comment: Reference Range > or = 20 Years 0.40-4.50 Ranges First trimester 0.26-2.66 Second trimester 0.55-2.73 Third trimester 0.43-2.91 Blood Blood / Unknown 01/17/2023 1 0:32 AM EDT 01/17/2023 10:35 AM EDT Narrative [employer] - 01/24/2023 8:13 PM EDT FASTING:YES [employer] Mis Tavarez PA-C LAB - BLOOD DRAW Edited Resu lt - Final Performing Organization Address [facility] Co de Phone Number [facility] [address] [address], [place] [address] [address] * CMP (01/17/2023 10:32 AM EDT) GLUCOSE 94 65 - 99 mg/dL [facility] Comment: Fasting reference interval UREA NITROGEN (BUN) 25 7 - 25 mg/dL [facility] CREATININE (blood) 0.72 0.50 - 0.97 mg/dL [facility] EGFR 110 > OR = 60 mL/min/1 .73m2 [employer] [facility] Comment: The eGFR is based on the CKD-EPI 2020 equation. To calculate the new eGFR from a previous Creatinine or Cystatin C result, go to https://www.kidney.org/professionals/ kdoqi/gfr%5Fcalculator BUN/CREATININE RATIO NOT APPLICABLE [facility] SODIUM 138 135 - 146 mmol/L [facility] POTASSIUM 4.2 3.5 - 5.3 mmol/L [facility] CHLORIDE 106 98 - 110 mmol/L [facility] CARBON DIOXIDE 25 20 - 32 mmol/L [facility] CALCIUM 9.6 8.6 - 10.2 mg/dL [facility] PROTEIN, TOTAL 7.4 6.1 - 8.1 g/dL [facility] ALBUMIN 4.6 3.6 - 5.1 g/dL [facility] GLOBULIN 2.8 1.9 - 3.7 g/dL (calc) [facility] ALBUMIN/GLOBUL IN RATIO 1.6 1.0 - 2.5 (calc) [facility] BILIRUBIN, TOTAL 0.3 0.2 - 1.2 mg/dL [facility] ALKALINE PHOSPHATASE 53 31 - 125 U/L [facility] AST 14 10 - 30 U/L [facility] ALT 13 6 - 29 U/L [facility] Blood Blood / Unknown 01/17/2023 1 0:32 AM EDT 01/17/2023 10:35 AM EDT Narrative [facility] - 01/24/2023 8:13 PM EDT FASTING:YES us Mis Tavarez PA-C LAB - BLOOD DRAW Edited Resu lt - Final [facility] [address] [address], [facility] [address] [place] [address] from Last 3 Months or Most Recently Relevant to Health Maintenance Insurance C[facility] Member Subscriber Plan / Payer (Ef fective 2023-Present) Name:Harriet Bass Relation to Subscriber:Self Name:Harriet Bass Payer ID:[id number] Group ID:Not on file Type:Managed Medicaid Address: [place] [id number] [employer] Care Teams Loan Coordinator Relationship Specialty Start Date End Date Mis Tavarez PA-C [address] [place] [address] PCP - General [facility]ILY [facility]INE[facility]DRA 03/28/22
[2025-06-12 15:02] LABS: MANUAL DIFF FLAG NO
[2025-06-12 15:57] LABS: Hematocrit 35.1 % (37.0-47.0); Hemoglobin 10.9 g/dl (12.0-16.0); Imm Gran Abs Auto 0.03 X10*3/uL (0.00-0.03); Imm Gran Pct Auto 0.3 % (0.0-0.4); Lymphocytes Absolute Auto 2.4 X10*3/uL (1.2-4.9); Mean Corpuscular HGB Conc 31.1 g/dl (31.0-35.0); Mean Corpuscular Hemoglobin 24.9 pg (27.0-33.0); Mean Corpuscular Volume 80.3 fL (80.0-98.0); NRBC Abs Auto 0.000 X10*3/uL (0.0-0.012); NRBC Pct Auto 0.0 /100WBC (0.0-0.2); Platelet Count 409 X10*3/uL (160-400); Red Blood Count 4.37 X10*6/uL (4.20-5.50); White Blood Count 9.8 X10*3/uL (4.8-10.8)
[2025-06-12 16:19] LABS: Hemoglobin A1C 102.3914 umol/L; Total Hemoglobin (HGBA1C) 2902.9331 umol/L
[2025-06-12 16:43] LABS: Alanine Aminotransferase 18 U/L (0-31); Albumin Level 4.5 g/dL (3.5-5.0); Alkaline Phosphatase 57 U/L (39-117); Anion Gap 11 (12-20); Aspartate Amino Transferase 20 U/L (5-31); Blood Urea Nitrogen 13 mg/dL (9-16); Calcium 9.5 mg/dL (8.4-10.2); Carbon Dioxide 23 mmol/L (22-29); Chloride 110 mmol/L (96-108); Estimated Glomerular Filt Rate > 60; Iron 27 mcg/dL (30-160); Percent Iron Saturation 8 % (15-50); Potassium 3.9 mmol/L (3.3-5.1); Sodium 140 mmol/L (135-145); Total Iron Binding Capacity 328 mcg/dL (228-428); Total Protein 7.4 g/dL (6.5-8.0); Unsaturated Iron Binding 301 ug/dL
[2025-06-12 16:50] LABS: Ferritin 7 ng/mL (10-122)
[2025-06-12 17:15] LABS: Folate 10.1 ng/mL (> or = 4.0); Vitamin B12 678 pg/mL (200-900)
== END 2025-06-12 14:47 | disposition home or self-care (01) ==
LOC: HO.LAB 14:46
PROVIDERS: PCP Physician Assistant; Visit Provider Physician Assistant
DX: R73.01 Impaired fasting glucose (principal); E03.9 Hypothyroidism, unspecified; R53.83 Other fatigue
CPT/HCPCS: 36415; 80053; 82607; 82728; 82746; 83036; 83540; 84443; 85025

== ENCOUNTER 2025-07-23 14:26 | Outpatient (AMB) | payer OTHER, SELFPAY ==
[2025-07-23 14:41] VITALS: BP 120/88; PULSE 72; TEMP 36.9; O2SAT 100; BMI 37.3
--- NOTE | 2025-07-23 14:41 | AM.OFFWIN_ITS ---
Intake Vital Signs 07/23/25 14:41 Height 5 ft 2 in Weight 204 lb BMI 37.3 BP 120/88 Blood Pressure Location Rt brachial Position Sitting Pulse 72 Pulse Source Pulse Oximeter Temp 98.5 F Temp Source Oral Pulse Oximetry (%) 100 Oxygen Delivery Method Room Air Intake Visit Reasons: EP ear blockage/ pain Intake Note: pt presents with bilateral ear pain and throat pain Patient Tobacco Use Status: Current everyday Tobacco user Allergies acetaminophen (From Excedrin Migraine) Allergy (Verified 07/23/25 14:43) Swelling aspirin (From Excedrin Migraine) Allergy (Verified 07/23/25 14:43) Swelling caffeine (From Excedrin Migraine) Allergy (Verified 07/23/25 14:43) Swelling ibuprofen Allergy (Verified 07/23/25 14:43) Swelling Do you need a note to return to daycare/school/sports/work: No HPI HPI Comments History of Present Illness Details 39 y/o Female patient with c/o B/L Ear P ain and Sore-throat for 2 days now. She also c/o Nasal/Sinus congestion for over a week. Denies Fevers, Chills, Nausea or vomiting. She does have Seasonal allergies - and currently using Xyzal 5 mg with no relief. 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 Current occupational exposures/hazards: No Cognitive needs: No Hearing needs: No Vision needs: No Female Reproductive History Menstrual Age of Menarche: 10 Review of Systems Const All systems reviewed & are unremarkable except as noted in HPI and below Physical Exam Vital Signs: Last Vital Signs Temp 98.5 F 07/23/25 14:41 Pulse 72 07/23/25 14:41 BP 120/88 07/23/25 14:41 Pulse Ox 100 07/23/25 14:41 Oxygen Delivery Method Room Air 07/23/25 14:41 BMI result Body Mass Index 37.3 Const General: no acute distress Nutritional Appearance: overweight Orientation/consciousness: patient oriented x3 HEENT Head: Yes normocephalic Ears: external ears normal and TM abnormal with fluid behind the TM bilateral General nose exam: Abnormal mucous membranes and turbinates present boggy and Nasal discharge present Face and sinus: Yes sinus tenderness Mouth: moist mucous membranes and Abnormal oral and palatal mucosa present erythematous Throat: Yes uvula midline Neuro General: patient oriented x3, gait normal and moves all extremities Psych Other: Pt sad, crying at times and very emotional. She is having relationship problems with her new Partner. Speech and movement: Normal speech and movement present Affect: Labile affect present and Sad affect present Attitude: cooperative Thought content: suicidality and no homicidality Insight: Good insight present (Psych) Judgement: Good judgement present (Psych) Results AMB Rapid Strep AMB Rapid Strep Negative Last Edit by Rena Salinas MA on 07/23/25 15:16 Results Reviewed Results Reviewed: Laboratory Last Values Strep Scn Rapid Clinic Negative 07/23/25 15:15 Assessment & Plan Assessment & Plan (1) Acute respiratory disease: Code(s): J06.9 - Acute upper respiratory infection, unspecified Plan: Rapid Strep Negative. Pt has Seasonal allergies, and Xyzal is not helping. D/C Xyzal. Ordered Zyrtec 10 mg BID Ordered Z-Pack on hold - Take it when symptoms do not improve. Orders: Orders AMB Rapid Strep Screen Today Z13.9 - Encounter for screening, unspecified Medications: New cetirizine (Zyrtec) 10 mg PO BID 60 tabs 0RF J30.9 - Allergic rhinitis, unspecified pseudoephedrine HCl ER (Sudafed 12 Hour) 120 mg PO Q12H 30 tabs 0RF J06.9 - Acute upper respiratory infection, unspecified azithromycin 500 mg PO DAILY 3 tabs 0RF 3 days J06.9 - Acute upper respiratory infection, unspecified Discontinued levocetirizine (Xyzal) Discontinued Reason: Patient no longer taking 5 mg PO QPM PRN 90 tabs 0RF allergy symptoms Coding Level of Care Code Est Pt Level 4 (54514) Diagnoses Acute respiratory disease J06.9 Time Spent (min) 20
--- OUTSIDE RECORDS SUMMARY | 2025-07-23 16:14 | XMS_ITS | Clinical Summary ---
Author Organization [facility] Address [address] [place] [address] Care Team Providers Care Blood Donor Unit Assistant Name Role Phone Mis Tavarez PA-C Primary [...] sprayIndications:C hronic seasonal allergic rhinitis Place 1 [place] in both nostrils once daily 16 g [...] daily 90 Tablet 1 01/23/20 23 Active [id number] fum-folic ac-om3 [id number] mg-mcg-mg combo packIndications:Fa luis [...] Imm-Pneumococcal (1 of 2 - PCV) 2004 Imm-HPV (1 - 3-dose SCDM series) 2012 Imm-DTaP/Tdap/Td (2 - Td or Tdap) 09/16/2022 012 Tobacco Screening 11/16/2022 11/16/2021 Tobacco Cessation Counseling (#1) 01/17/2024 022 Anxiety Screening 01/18/2024 01/17/2023 Relationship Safety Screening/Counseling 01/18/2024 01/17/2023, 10/19/2022 TSH Monitoring 01/18/2024 01/17/2023, 01/03, 01/17/2023, Additional history exists Annual Wellness (Adult): Indicated (All Coverage) 01/24/2024 01/23/2023, 01/17/2023 Alcohol and Drug Screen 11/05/2024 01/17/2023, 10/19 Depression Annual Screen 11/05/2024 01/17/2023 [id number] ( season) 2025 Imm-Influenza (#1) 2025 10/19/2022, 09/16/2012 Diabetes Screening 01/17/2026 01/17/2023, 0 11/18/2021, 11/18/2021 Hypertension Screening (#1) 01/22/2026 Pap Smear 01/23/2026 01/23/2023 Cervical Cancer Screening 01/24/2028 Pap + HPV 01/24/2028 01/23/2023 HIV Screening Completed 01/17/2023 Hepatitis C Screening Completed 01/17/2023 Syphilis Screening Discontinued 01/17/2023 Cervical Ablation/Cold-Knife Conization Discontinued Cervical Cryotherapy [...] Routine 01/17/2023 10:32 AM EDT Acquired hypothyroidism RPR W/RFLX TITER+FTA+CONF Routine 01/17/2023 10:32 AM EDT Screening examination for venereal disease HEPATITIS C AB W/RFLX HCV RNA, QT, [...] TRACHOMATIS RNA, TMA NOT DETECTED NOT DETECTED [facility] NEISSERIA GONORRHOEAE RNA, TMA NOT DETECTED NOT DETECTED [facility] COMMENT [facility] CLINICAL INFORMATION See Note [facility] Comment:Routine exam LMP See Note [facility] Comment:[id number] PREV. PAP See Note [facility] Comment:NONE GIVEN PREV. BX See Note [facility] Comment:NONE GIVEN SOURCE See Note [facility] Comment:Cervix STATEMENT OF ADEQUACY See Note [facility] Comment: Satisfactory for evaluation. Endocervical/transformation zone component absent. INTERPRETATION/RESU LT See Note [facility] [place] [facility] Comment:Negative for intraep ithelial lesion or malignancy. INFECTION See Note [facility] Comment: Bacteria morphologically consistent with Actinomyces spp. 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 Comment: KF, CT(ASCP) CT screening location: [place] [address] COMMENT [facility] HPV MRNA E6/E7 Not Detected Not Detected [facility] Comment: Methodology: Safety Security Officer-Mediated Amplification This assay detects E6/E7 viral messenger RNA (mRNA) from 14 high-risk HPV types (16,18,31,33,35,39,45,51,52,56,58,59,66,68). Cervical sources are required for HPV testing. If a vaginal source from a patient who has had a total hysterectomy with removal of cervix was submitted, please contact the testing laboratory for alternative testing options. For additional information, please refer to http://[employer].Mind Palette/faq/YYU875w9 (This link if provided for information/ educational purposes only.) CYTOLOGY Cervix uteri structure / Unknown 01/23/2023 1:54 PM EDT 01/24/2023 1:34 AM EDT Narrative [employer] [facility] - 01/25/2023 4:02 PM EDT EXPLANATORY [...] test SurePath(TM) specimens have been determined by [employer]. The modifications have not been cleared or approved by the FDA. This assay has been validated pursuant to the CLIA regulations and is used for clinical purposes. For additional information, please refer to https://education.Mind Palette/faq/BFV812 (This link is being provided for information/ educational purposes only.) us Sabrina Obrien MD LAB - PATHOLOGY AND CYTOLOGY AMB ULATORY Final Result Performing Organization Address [facility] Co de Phone Number [facility] [address] [address], [facility] [address] [address] * Hep C Ab w/Rflx (01/17/2023 10:32 AM EDT) Pathologist [facility] HEPATITIS C ANTIBODY NON-REACT JAIME NON-REACT JAIME [facility] SIGNAL TO CUT-OFF 0.02 <1.00 [facility] Comment: HCV antibody was non-reactive. There is no laboratory evidence of HCV infection. In most cases, no further action is required. However, if recent HCV exposure is suspected, a test for HCV RNA (test code 55954) is suggested. For additional information please refer to http://[employer].Mind Palette/faq/VAJ54q1 (This link is being provided for informational/ educational purposes only.) Blood Blood / Unknown 01/17/2023 1 0:32 AM EDT 01/17/2023 10:35 AM EDT Narrative [employer] [facility] - 01/24/2023 8:13 PM EDT FASTING:YES Mis Tavarez PA-C LAB - BLOOD DRAW Edited Resu lt - Final Performing Organization Address [facility] Co de Phone Number [facility] [address] [address], [facility] [address] [address] * HIV Screen (01/17/2023 10:32 AM EDT) Pathologist [facility] HIV AG/AB, 4TH GEN NON-REAC TIVE NON-REAC TIVE [facility] Comment: HIV-1 antigen and HIV-1/HIV-2 antibodies were [...] purpose. For additional information please refer to http://[employer].Mind Palette/faq/UQP027 (This link is being provided for informational/ educational purposes only.) The performance of this assay has not been clinically validated in patients less than 2 years old. Blood Blood / Unknown 01/17/2023 1 0:32 AM EDT 01/17/2023 10:35 AM EDT Narrative [employer] - 01/24/2023 8:13 PM EDT FASTING:YES us Mis CANNON-Janice LAB - BLOOD DRAW Final Resul t Performing Organization Address [facility] de Phone Number [employer] [address] [place] [address], [employer] [address] [address] * (ABNORMAL) Thyroid cascading reflex panel (01/17/2023 10:32 AM EDT) TSH 36.97(H) 0.40 - 4.50 mIU/L [facility] Comment: Reference Range > or = 20 Years 0.40-4.50 Ranges First trimester 0.26-2.66 Second trimester 0.55-2.73 Third trimester 0.43-2.91 Blood Blood / Unknown 01/17/2023 1 0:32 AM EDT 01/17/2023 10:35 AM EDT Narrative [employer] - 01/24/2023 8:13 PM EDT FASTING:YES us Mis CANNON-C LAB - BLOOD DRAW Edited Resu lt - Final Performing Organization Address City/[facility]/ZIP Co de Phone Number [employer] [address] [place] [address], [employer] [address] [address] * RPR W/RFLX TITER+FTA+CONF (01/17/2023 10:32 AM EDT) Pathologist [facility] RPR (DX) W/REFL TITER AND CONFIRMATORY TESTING NON-REACT JAIME NON-REACT JAIME [facility] Blood Blood / Unknown 01/17/2023 1 0:32 AM EDT 01/17/2023 10:35 AM EDT Narrative [employer] [facility] - 01/24/2023 8:13 PM EDT FASTING:YES Mis Tavarez PA-C LAB - BLOOD DRAW Edited Resu lt - Final [facility] [address] [address], [facility] [address] [place] [address] * CMP (01/17/2023 10:32 AM EDT) Pathologist [facility] GLUCOSE 94 65 - 99 mg/dL [facility] Comment: Fasting reference interval UREA NITROGEN (BUN) 25 7 - 25 mg/dL [facility] CREATININE (blood) 0.72 0.50 - 0.97 mg/dL [facility] EGFR 110 > OR = 60 mL/min/1 .73m2 [facility] Comment: The eGFR is based on the CKD-EPI 2020 equation. To calculate the new eGFR from a previous Creatinine or Cystatin C result, go to https://www.kidney.org/professionals/ kdoqi/gfr%5Fcalculator BUN/CREATININE RATIO NOT APPLICABLE 6 - [facility] SODIUM 138 135 - 146 mmol/L [facility] POTASSIUM 4.2 3.5 - 5.3 mmol/L [facility] CHLORIDE 106 98 - 110 mmol/L [facility] CARBON DIOXIDE 25 20 - 32 mmol/L [facility] CALCIUM 9.6 8.6 - 10.2 mg/dL [facility] PROTEIN, TOTAL 7.4 6.1 - 8.1 g/dL [facility] ALBUMIN 4.6 3.6 - 5.1 g/dL [facility] GLOBULIN 2.8 1.9 - 3.7 g/dL (calc) [facility] ALBUMIN/GLOBUL IN RATIO 1.6 1.0 - 2.5 (calc) [facility] BILIRUBIN, TOTAL 0.3 0.2 - 1.2 mg/dL [facility] ALKALINE PHOSPHATASE 53 31 - 125 U/L [facility] AST 14 10 - 30 U/L [facility] ALT 13 6 - 29 U/L [facility] Blood Blood / Unknown 01/17/2023 1 0:32 AM EDT 01/17/2023 10:35 AM EDT Narrative [facility] - 01/24/2023 8:13 PM EDT FASTING:YES Mis Tavarez PA-C LAB - BLOOD DRAW Edited Resu lt - Final [facility] [address] [address], [facility] [address] [address] from Last 3 Months or Most Recently Relevant to Health Maintenance Insurance [facility] [employer] Member Subscriber Plan / Payer (Ef fective 2023-Present) Name:Harriet Bass Relation to Subscriber:Self Name:Harriet Bass Payer ID:[id number] Group ID:Not on file Type:Managed Medicaid Address: [address] [employer]CO Member Subscriber Plan / Payer (Ef fective 2023-Present) Name:Harriet Bass Relation to Subscriber:Self Name:Harriet Bass Payer ID:[id number] Group ID:Not on file Type:Managed Medicaid Address: [address] Care Teams Blood Donor Unit Assistant Relationship Specialty Start Date End Date Mis Tavarez PA-C [address] [place] [address] PCP - General [facility] [place] 03/28/22
== END 2025-07-23 15:43 | disposition home or self-care (01) ==
PROVIDERS: PCP Physician Assistant; Visit Provider Nurse Practitioner Family
DX: Z13.9 Encounter for screening, unspecified (principal); J06.9 Acute upper respiratory infection, unspecified

== ENCOUNTER → 2025-07-23 14:26 | Outpatient (BNVA) | payer OTHER, SELFPAY | PROVIDERS: PCP Physician Assistant; Visit Provider Nurse Practitioner Family | DX: J30.9 Allergic rhinitis, unspecified (principal); J06.9 Acute upper respiratory infection, unspecified | CPT/HCPCS: 87880; 99212 ==

== ENCOUNTER 2025-07-31 01:28 | Emergency (ER) | payer OTHER, SELFPAY ==
--- OUTSIDE RECORDS SUMMARY | 2015-04-14 09:17 | XMS_ITS | Continuity of Care Document ---
Author Organization [facility] vices Address [address] [place] [address] Phone Care Team Providers Care Stoker Installation Mechanic Name Role Phone Case Management, [facility] Unavailable Advance Directives Directive Yes / No Effective Date File Name No Information Encounters Encounter Description Practice Location Reason(s) For Visit Diagnoses Date Provider Providers Copied on Encounter [facility], [address] [place] [address], [address], [place] tel:[phone] [facility] Adult Medicine No Information Case Management [facility]. . Family History Family Member Type Diagnosis [...]
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
[2025-07-31 01:33] VITALS: BP 124/80; BP 126/90; PULSE 104; PULSE 86; RESP 18; TEMP -17.7; TEMP 0; O2SAT 98; O2SAT 99; BMI 38.3
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
--- NOTE | 2025-07-31 01:42 | ECG_ITS ---
Test Reason : SOB Blood Pressure : */* mmHG Vent. Rate : 79 BPM Atrial Rate : 79 BPM P-R Int : 154 ms QRS Dur : 76 ms QT Int : 390 ms P-R-T Axes : 33 31 41 degrees QTcB Int : 447 ms Normal sinus rhythm Low voltage QRS Cannot rule out Anterior infarct , age undetermined Abnormal ECG No previous ECGs available Referred By: Azucena Wagner Electronically Signed By: Abiodun Burch
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
[2025-07-31 02:29] LABS: Venous Blood Gas Refer to POC result
[2025-07-31 02:31] LABS: Hematocrit 35.3 % (37.0-47.0); Hemoglobin 11.4 g/dl (12.0-16.0); Imm Gran Abs Auto 0.03 X10*3/uL (0.00-0.03); Imm Gran Pct Auto 0.3 % (0.0-0.4); Lymphocytes Absolute Auto 2.2 X10*3/uL (1.2-4.9); MANUAL DIFF FLAG NO; Mean Corpuscular HGB Conc 32.3 g/dl (31.0-35.0); Mean Corpuscular Hemoglobin 25.6 pg (27.0-33.0); Mean Corpuscular Volume 79.1 fL (80.0-98.0); NRBC Abs Auto 0.000 X10*3/uL (0.0-0.012); NRBC Pct Auto 0.0 /100WBC (0.0-0.2); Platelet Count 396 X10*3/uL (160-400); Red Blood Count 4.46 X10*6/uL (4.20-5.50); White Blood Count 10.0 X10*3/uL (4.8-10.8)
[2025-07-31 02:34] LABS: Carbon Monoxide POC 4.7 %
[2025-07-31 02:35] LABS: VBG HCO3 28 mmol/L (22-26); VBG O2 % Saturation 64.0 %
[2025-07-31 02:46] LABS: Anion Gap 10 (12-20); Blood Urea Nitrogen 12 mg/dL (9-16); Calcium 9.6 mg/dL (8.4-10.2); Carbon Dioxide 28 mmol/L (22-29); Chloride 108 mmol/L (96-108); Creatinine Clr Calc Pharmacy 100.2; Estimated Glomerular Filt Rate > 60; Potassium 4.0 mmol/L (3.3-5.1); Sodium 142 mmol/L (135-145)
[2025-07-31 03:27] VITALS: BP 137/82; PULSE 85; RESP 18; TEMP 36.7; O2SAT 99
[2025-07-31 03:33] VITALS: BP 137/82; PULSE 85; RESP 18; TEMP 36.7; O2SAT 99
== END 2025-07-31 03:33 | disposition home or self-care (01) ==
PROVIDERS: Emergency Provider Emergency Medicine
DX: T59.811A Toxic effect of smoke, accidental (unintentional), initial encounter (principal); R06.02 Shortness of breath; J45.909 Unspecified asthma, uncomplicated; Y92.092 Bedroom in other non-institutional residence as the place of occurrence of the external cause; Z72.0 Tobacco use
CPT/HCPCS: 36415; 71045; 80048; 82375; 82803; 85025; 93005; 99283

== ENCOUNTER → 2025-07-31 01:42 | Outpatient (BNV) | payer OTHER, SELFPAY | PROVIDERS: Emergency Provider Emergency Medicine; Visit Provider Internal Medicine Cardiovascular Disease | DX: R94.31 Abnormal electrocardiogram [ECG] [EKG] (principal); R06.02 Shortness of breath | CPT/HCPCS: 93010 ==

== ENCOUNTER → 2025-07-31 01:43 | Outpatient (BNV) | payer OTHER, SELFPAY | PROVIDERS: Emergency Provider Emergency Medicine; Visit Provider Radiology Diagnostic Radiology | DX: R06.02 Shortness of breath (principal) | CPT/HCPCS: 71045 ==

== ENCOUNTER 2025-08-03 13:35 | Outpatient (AMB) | payer OTHER, SELFPAY ==
--- NOTE | 2025-08-03 13:38 | A.OFFVIS_ITS ---
Intake Visit Reasons: cysto Intake Note: Patient is present for a cystoscopy Urology Medication:NONE Antibiotic Allergy:NONE Blood Thinner:NONE Lot #: [id number] Exp:04/13/28 Premises Technician Required: No Allergies acetaminophen (From Excedrin Migraine) Allergy (Verified 08/03/25 13:38) Swelling aspirin (From Excedrin Migraine) Allergy (Verified 08/03/25 13:38) Swelling caffeine (From Excedrin Migraine) Allergy (Verified 08/03/25 13:38) Swelling ibuprofen Allergy (Verified 08/03/25 13:38) Swelling Medication List - Last Reconciled 08/03/25 by Simin Carmichael MD albuterol sulfate 90 mcg/actuation 2 puffs inhalation Q6H PRN azithromycin 500 mg PO DAILY 3 days bupropion HCl XL (Wellbutrin XL) 150 mg PO QAM cetirizine (Zyrtec) 10 mg PO BID doxycycline hyclate 100 mg PO BID 7 days levothyroxine 125 mcg PO DAILY mometasone 100 mcg/actuation (Asmanex HFA) 1 puff inhalation BID montelukast (Singulair) 10 mg PO BEDTIME phenazopyridine (Pyridium) 200 mg PO Q8H PRN pseudoephedrine HCl ER (Sudafed 12 Hour) 120 mg PO Q12H tamsulosin (Flomax) 0.4 mg PO BEDTIME triamcinolone acetonide (Nasacort) 2 sprays intranasal DAILY HPI Comments Details: 07/24/25-- History of Present Illness The patient is a 39-year-old female presenting with evaluation of urethral cystic mass. The urethral swelling was identified during a referral from gynecology, and the patient reports intermittent burning during urination without hematuria. On examination, there was swelling noted suburethrally, which may indicate a periurethral cyst or diverticulum. The patient experiences pinching pain upon palpation of the area, but no discharge has been observed. Also pain with intercourse so she has abstained. A bladder scan was performed, revealing incomplete bladder emptying, and the patient agreed to catheterization. The patient was scheduled for a cystoscopy, which could not be completed due to pain. An MRI of the pelvis was denied by insurance, and a peer review will be sought to obtain approval for further evaluation. Results - Bladder scan: 410 mL of urine, catheterized urine 150 mL Plan 1. 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 - MRI needed - MRI of the pelvis was denied; peer review to be pursued for approval. - Patient to be placed on doxycycline 100 mg twice daily for 7 days and pyridium as needed. - Referral to urogynecology 2. Incomplete bladder emptying, likely from suburethral pressure from suburethral cystic mass., we will trial tamsulosin to see if medication may help with better urine flow. 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 Current occupational exposures/hazards: No Cognitive needs: No Hearing needs: No Vision needs: No Female Reproductive History Menstrual Age of Menarche: 10 Review of Systems Const All systems reviewed & are unremarkable except as noted in HPI and below Reports no additional complaints Eyes Reports no additional complaints ENT Reports no additional complaints Card Reports no additional complaints Resp Reports no additional complaints GI Reports no additional complaints Reports as per HPI Musc Reports no additional complaints Skin/Breast Reports system reviewed and no additional complaints, except as documented Neuro Reports no additional complaints Psych Reports no additional complaints Endo Reports no additional complaints Chato/Lymph Reports no additional complaints Aller/Immun Reports no additional complaints Office Procedures Cystoscopy Consent Discussed risk and benefit or proposed procedure with the patient. Information consent for procedure given to the patient. Discussed technical aspects, risks, benefits and alternatives in full. Addressed all of the patient's questions and concerns regarding the procedure. The patient demonstrated knowledge and understanding. They wish to proceed with this procedure. Preparation The patient was prepped in the usual manner. A hogshead head matcher was present and in the room. Genitalia was prepped with betadine solution in a sterile manner. Lidocaine Jelly 2% was placed into the urethra and 16Fr flexible Olympus cystoscope was attempted to be passed transurethrally, procedure not able to be completed do to pain, even after adding additional lidocaine jelly. Under sterile technique a 14 Portuguese catheter was passed transurethrally, 150 mL urine drained 74003-[id number] of non-indwelling bladder catheter Procedure code (CPT) selection complete Office Meds lidocaine HCl 2 % mucosal jelly in applicator Performing Provider: Simin Carmichael MD Performing Location: [facility] – [place] [facility] Administered by: Bhupendra Webb LPN on 08/03/25 13:50 Dose Route Admin Location Dispensed Lot Number Expiration Date ND Optician Apprentice Dispensing 10 mL intra-urethral 20 mL ciprofloxacin HCl 500 mg tablet Performing Provider: Simin Carmichael MD Performing Location: [facility] – [place] [facility] Administered by: Bhupendra Webb LPN on 08/03/25 13:50 Dose Route Admin Location Dispensed Lot Number Expiration Date ND Optician Apprentice Dispensing 500 mg PO 1 tab Assessment & Plan Assessment & Plan (1) Urethral disorders in diseases classified elsewhere: Code(s): N37 - Urethral disorders in diseases classified elsewhere Category: Medical (2) Urethral diverticulum: Code(s): N36.1 - Urethral diverticulum Category: Medical (3) Dyspareunia due to medical condition in female: Code(s): N94.19 - Other specified dyspareunia Category: Medical Plan Plan 1. 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 - MRI needed - MRI of the pelvis was denied; peer review to be pursued for approval. - Patient to be placed on doxycycline 100 mg twice daily for 7 days and pyridium as needed. - Referral to urogynecology 2. Incomplete bladder emptying, likely from suburethral pressure from suburethral cystic mass., we will trial tamsulosin to see if medication may help with better urine flow. Patient instructed not to push when trying to urinate Orders: Orders AMB Cystoscopy Today N36.1 - Urethral diverticulum, R30.0 - Dysuria AMB Urinalysis Automated Today Z13.9 - Encounter for screening, unspecified Urine Culture Today R30.0 - Dysuria Referrals Urogynecology Referral N37 - Urethral disorders in diseases classified elsewhere Medications: New tamsulosin (Flomax) 0.4 mg PO BEDTIME 30 caps 3RF doxycycline hyclate 100 mg PO BID 14 tabs 0RF 7 days phenazopyridine (Pyridium) Must administer with food 200 mg PO Q8H PRN 30 tabs 1RF urinary burning Patient Instructions: The patient had an opportunity to ask questions regarding treatment plan. The patient expressed understanding and agreement with the above treatment plan. The patient is aware they should contact our office by phone for worsening of their current condition or the appearance of new symptoms. Compliance is encour aged with any medications and followup testing that is ordered. It is a privilege to be allowed the opportunity to participate in the urologic care of your patient. If you have any questions or concerns regarding treatment for the above conditions please do not hesitate to contact me. The office telephone contact is [phone]. This note is constructed in part using voice recognition software. While every effort has been made to ensure accuracy career development coordinator/teacher errors may have been included. Yours sincerely, Simin Carmichael MD Scribe Plan - Not visible on output: Patient was informed and verbally consented to the use of an ambient scribe for clinic note documentation during this visit. Coding Level of Care Code Est Pt Level 4 (63645) Complex EM visit Add On G2211 Diagnoses Urethral disorders in diseases classified elsewhere N37 Urethral diverticulum N36.1 Dyspareunia due to medical condition in female N94.19 CPT Codes Cystoscopy - CPT: 23087-Grgwrwaly of non-indwelling bladder catheter ([id number]) Comment Cystoscopy 87500 not completed, see above
--- OUTSIDE RECORDS SUMMARY | 2025-08-03 15:10 | XMS_ITS | Clinical Summary ---
Author Organization [facility] Address [address] [place] [address] Care Team Providers Care Staff Radiologist Name Role Phone Mis Tavarez PA-C Primary [...] sprayIndications:C hronic seasonal allergic rhinitis Place 1 Royal in both nostrils once daily 16 g [...] daily 90 Tablet 1 01/23/20 23 Active hxeffi20-wsmy fum-folic ac-om3 [id number] mg-mcg-mg combo packIndications:Fa luis [...] 01/17/2023, 10/19 Depression Annual Screen 11/05/2024 01/17/2023 Onh-JCFTF-02 ( season) 2025 Imm-Influenza (#1) 2025 10/19/2022, [...] TRACHOMATIS RNA, TMA NOT DETECTED NOT DETECTED [employer] NEISSERIA GONORRHOEAE RNA, TMA NOT DETECTED NOT DETECTED [employer] COMMENT [employer] [facility] CLINICAL INFORMATION See Note [employer] Comment:Routine exam LMP See Note [employer] Comment:[id number] PREV. PAP See Note [facility] Comment:NONE GIVEN PREV. BX See Note [employer] Comment:NONE GIVEN SOURCE See Note [employer] [facility] Comment:Cervix STATEMENT OF ADEQUACY See Note [facility] Comment: Satisfactory for evaluation. Endocervical/transformation zone component absent. INTERPRETATION/RESU LT See Note [facility] [place] [employer] Comment:Negative for intraep ithelial lesion or malignancy. INFECTION See Note [facility] [facility] Comment: Bacteria morphologically consistent with Actinomyces spp. [employer] See Note [facility] [employer] [facility] Comment: KF, CT(ASCP) CT screening location: [place] [address] COMMENT [facility] HPV MRNA E6/E7 Not Detected Not Detected [facility] Comment: Methodology: Sterile Supply Technician-Mediated Amplification This assay detects E6/E7 viral messenger RNA (mRNA) from 14 high-risk HPV types (16,18,31,33,35,39,45,51,52,56,58,59,66,68). Cervical sources are required for HPV testing. If a vaginal source from a patient who has had a total hysterectomy with removal of cervix was submitted, please contact the testing laboratory for alternative testing options. For additional information, please refer to http://[employer].Next audience/faq/HRH086e5 (This link if provided for information/ educational purposes only.) CYTOLOGY Cervix uteri structure / Unknown 01/23/2023 1:54 PM EDT 01/24/2023 1:34 AM EDT Narrative [facility] - 01/25/2023 4:02 PM EDT EXPLANATORY NOTE: [...] test SurePath(TM) specimens have been determined by [employer]. The modifications have not been cleared or approved by the FDA. This assay has been validated pursuant to the CLIA regulations and is used for clinical purposes. For additional information, please refer to https://education.Next audience/faq/YOW145 (This link is being provided for information/ educational purposes only.) us Sabrina Obrien MD LAB - PATHOLOGY AND CYTOLOGY AMB ULATORY Final Result Performing Organization Address [facility] Co de Phone Number [facility] [address] [address], [facility] [address] [address] * Hep C Ab w/Rflx (01/17/2023 10:32 AM EDT) Pathologist [facility] HEPATITIS C ANTIBODY NON-REACT JAIME NON-REACT JAMIE [facility] SIGNAL TO CUT-OFF 0.02 <1.00 [employer] Comment: HCV antibody was non-reactive. There is no laboratory evidence of HCV infection. In most cases, no further action is required. However, if recent HCV exposure is suspected, a test for HCV RNA (test code 29280) is suggested. For additional information please refer to http://[employer].Next audience/faq/JCJ59e0 (This link is being provided for informational/ educational purposes only.) Blood Blood / Unknown 01/17/2023 1 0:32 AM EDT 01/17/2023 10:35 AM EDT Narrative [facility] - 01/24/2023 8:13 PM EDT FASTING:YES Mis Tavarez PA-C LAB - BLOOD DRAW Edited Resu lt - Final Performing Organization Address [facility] Co de Phone Number [facility] [address] [address], [facility] [address] [address] * HIV Screen (01/17/2023 10:32 AM EDT) Pathologist [facility] HIV AG/AB, 4TH GEN NON-REAC TIVE NON-REAC TIVE [facility] Comment: HIV-1 antigen and HIV-1/HIV-2 antibodies [...] purpose. For additional information please refer to http://[employer].Next audience/faq/OUS894 (This link is being provided for informational/ educational purposes only.) The performance of this assay has not been clinically validated in patients less than 2 years old. Blood Blood / Unknown 01/17/2023 1 0:32 AM EDT 01/17/2023 10:35 AM EDT Narrative [facility] - 01/24/2023 8:13 PM EDT FASTING:YES us Mis CANNON-Janice LAB - BLOOD DRAW Final Resul t Performing Organization Address [facility] de Phone Number [facility] [address] [place] [address], [facility] [address] [address] * (ABNORMAL) Thyroid cascading reflex panel (01/17/2023 10:32 AM EDT) TSH 36.97(H) 0.40 - 4.50 mIU/L [employer] [facility] Comment: Reference Range > or = 20 Years 0.40-4.50 Ranges First trimester 0.26-2.66 Second trimester 0.55-2.73 Third trimester 0.43-2.91 Blood Blood / Unknown 01/17/2023 1 0:32 AM EDT 01/17/2023 10:35 AM EDT Narrative [facility] - 01/24/2023 8:13 PM EDT FASTING:YES us Mis CANNON-C LAB - BLOOD DRAW Edited Resu lt - Final Performing Organization Address City/[facility]/ZIP Co de Phone Number [facility] [address] [place] [address], [facility] [address] [address] * RPR W/RFLX TITER+FTA+CONF (01/17/2023 10:32 AM EDT) Pathologist [facility] RPR (DX) W/REFL TITER AND CONFIRMATORY TESTING NON-REACT JAIME NON-REACT JAIME [facility] Blood Blood / Unknown 01/17/2023 1 0:32 AM EDT 01/17/2023 10:35 AM EDT Narrative [facility] - 01/24/2023 8:13 PM EDT FASTING:YES Mis Tavarez PA-C LAB - BLOOD DRAW Edited Resu lt - Final [facility] [address] [address], [facility] [address] [place] [address] * CMP (01/17/2023 10:32 AM EDT) Pathologist [facility] GLUCOSE 94 65 - 99 mg/dL [facility] Comment: Fasting reference interval UREA NITROGEN (BUN) 25 7 - 25 mg/dL [facility] CREATININE (blood) 0.72 0.50 - 0.97 mg/dL [facility] EGFR 110 > OR = 60 mL/min/1 .73m2 [facility] Comment: The eGFR is based on the CKD-EPI 2020 equation. To calculate the new eGFR from a previous Creatinine or Cystatin C result, go to https://www.kidney.org/professionals/ kdoqi/gfr%5Fcalculator BUN/CREATININE RATIO NOT APPLICABLE 6 - [facility] SODIUM 138 135 - 146 mmol/L [facility] POTASSIUM 4.2 3.5 - 5.3 mmol/L [facility] CHLORIDE 106 98 - 110 mmol/L [facility] CARBON DIOXIDE 25 20 - 32 mmol/L [facility] CALCIUM 9.6 8.6 - 10.2 mg/dL [facility] PROTEIN, TOTAL 7.4 6.1 - 8.1 g/dL [facility] ALBUMIN 4.6 3.6 - 5.1 g/dL [facility] GLOBULIN 2.8 1.9 - 3.7 g/dL (calc) [facility] ALBUMIN/GLOBUL IN RATIO 1.6 1.0 - 2.5 (calc) [facility] BILIRUBIN, TOTAL 0.3 0.2 - 1.2 mg/dL [facility] ALKALINE PHOSPHATASE 53 31 - 125 U/L [employer] [facility] AST 14 10 - 30 U/L [employer] [facility] ALT 13 6 - 29 U/L [employer] [facility] Blood Blood / Unknown 01/17/2023 1 0:32 AM EDT 01/17/2023 10:35 AM EDT Narrative [employer] [facility] - 01/24/2023 8:13 PM EDT FASTING:YES Mis Tavarez PA-C LAB - BLOOD DRAW Edited Resu lt - Final [facility] [address] [address], [facility] [address] [address] from Last 3 Months or Most Recently Relevant to Health Maintenance Insurance [facility] Member Subscriber Plan / Payer (Ef fective 2023-Present) Name:Harriet Bass Relation to Subscriber:Self Name:Harriet Bass Payer ID:[id number] Group ID:Not on file Type:Managed Medicaid Address: [address] ACO Member Subscriber Plan / Payer (Ef fective 2023-Present) Name:Harriet Bass Relation to Subscriber:Self Name:Harriet Bass Payer ID:[id number] Group ID:Not on file Type:Managed Medicaid Address: [address] Care Teams Staff Radiologist Relationship Specialty Start Date End Date Mis Tavarez PA-C [address] [place] [address] PCP - General [facility] [place] 03/28/22
== END 2025-08-03 14:44 | disposition home or self-care (01) ==
LOC: HO.HUSH 13:36
PROVIDERS: PCP Physician Assistant; Visit Provider Urology
DX: N36.1 Urethral diverticulum (principal); N94.19 Other specified dyspareunia; R30.0 Dysuria; Z13.9 Encounter for screening, unspecified
CPT/HCPCS: 52000; 99214

== ENCOUNTER 2025-08-03 13:35 | Outpatient (REF) | payer OTHER, SELFPAY ==
--- OUTSIDE RECORDS SUMMARY | 2015-04-14 09:17 | XMS_ITS | Continuity of Care Document ---
Author Organization [facility] vices Address [address] [place] [address] Phone Care Team Providers Care Terminal Manager Name Role Phone Case Management, [facility] Unavailable Advance Directives Directive Yes / No Effective Date File Name No Information Encounters Encounter Description Practice Location Reason(s) For Visit Diagnoses Date Provider Providers Copied on Encounter [facility], [address] [place] [address], [address], [place] tel:[phone] [facility] Adult Medicine No Information Case Management [facility]. . Family History Family Member Type Diagnosis [...]
== END 2025-08-03 13:36 | disposition home or self-care (01) ==
LOC: HO.LNP 13:35
PROVIDERS: PCP Physician Assistant; Visit Provider Urology
DX: N36.1 Urethral diverticulum (principal); N94.19 Other specified dyspareunia; N37 Urethral disorders in diseases classified elsewhere; R30.0 Dysuria
CPT/HCPCS: 52000; 81003; 87086; 99212

== ENCOUNTER 2025-08-21 09:31 | Outpatient (AMB) | payer OTHER, SELFPAY ==
--- OUTSIDE RECORDS SUMMARY | 2015-04-14 09:17 | XMS_ITS | Continuity of Care Document ---
Author Organization [facility] vices Address [address] [place] [address] Phone Care Team Providers Care Bone Char Kiln Tender Name Role Phone Case Management, [facility] Unavailable Advance Directives Directive Yes / No Effective Date File Name No Information Encounters Encounter Description Practice Location Reason(s) For Visit Diagnoses Date Provider Providers Copied on Encounter [facility], [address] [place] [address], [address], [place] tel:[phone] [facility] Adult Medicine No Information Case Management [facility]. . Family History Family Member Type Diagnosis Age At Onset No Information Payers Payer name Insurance type Covered alliance party ID Authoriza tion(s) No Information Social [...]
--- NOTE | 2025-08-21 09:42 | MHC.OFFVIS ---
Intake Visit Reasons: MRI RESULTS Intake Note: Patient is present via telehealth for a follow up Urology Medication:NONE Antibiotic Allergy:NONE Blood Thinner:NONE [employer]ing Machine Operator Required: No Allergies acetaminophen (From Excedrin Migraine) Allergy (Verified 08/21/25 09:42) Swelling aspirin (From Excedrin Migraine) Allergy (Verified 08/21/25 09:42) Swelling caffeine (From Excedrin Migraine) Allergy (Verified 08/21/25 09:42) Swelling ibuprofen Allergy (Verified 08/21/25 09:42) Swelling Medication List - Last Reconciled 08/21/25 by Simin Carmichael MD albuterol sulfate 90 mcg/actuation 2 puffs inhalation Q6H PRN azithromycin 500 mg PO DAILY 3 days bupropion HCl XL (Wellbutrin XL) 150 mg PO QAM cetirizine (Zyrtec) 10 mg PO BID doxycycline hyclate 100 mg PO BID 7 days levothyroxine 125 mcg PO DAILY mometasone 100 mcg/actuation (Asmanex HFA) 1 puff inhalation BID montelukast (Singulair) 10 mg PO BEDTIME phenazopyridine (Pyridium) 200 mg PO Q8H PRN pseudoephedrine HCl ER (Sudafed 12 Hour) 120 mg PO Q12H tamsulosin (Flomax) 0.4 mg PO BEDTIME triamcinolone acetonide (Nasacort) 2 sprays intranasal DAILY HPI Comments Details: 08/21/25--Harriet is a 39-year-old female with urethral cystic mass possible periurethral cyst versus diverticulum; she was last seen in the office 07/24/2025 MRI was ordered; insurance denied the MRI, delaying further diagnostic evaluation. History of Present Illness The patient is a 39-year-old female presenting with a urethral cystic mass. The patient reports intermittent burning sensations, for which she takes pyridium as needed. A referral to urogynecology at [facility] was made, but the patient has not yet been contacted by them. Plan 1. Urethral Cystic Mass - Patient to take pyridium as needed for burning sensations. - Follow up with urogynecology referral. 07/24/25-- History of Present Illness The patient is a 39-year-old female presenting with evaluation of urethral cystic mass. The urethral swelling was identified during a referral from gynecology, and the patient reports intermittent burning during urination without hematuria. On examination, there was swelling noted suburethrally, which may indicate a periurethral cyst or diverticulum. The patient experiences pinching pain upon palpation of the area, but no discharge has been observed. Also pain with intercourse so she has abstained. A bladder scan was performed, revealing incomplete bladder emptying, and the patient agreed to catheterization. The patient was scheduled for a cystoscopy, which could not be completed due to pain. An MRI of the pelvis was denied by insurance, and a peer review will be sought to obtain approval for further evaluation. Results - Bladder scan: 410 mL of urine, catheterized urine 150 mL Plan 1. 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 - MRI needed - MRI of the pelvis was denied; peer review to be pursued for approval. - Patient to be placed on doxycycline 100 mg twice daily for 7 days and pyridium as needed. - Referral to urogynecology 2. Incomplete bladder emptying, likely from suburethral pressure from suburethral cystic mass., we will trial tamsulosin to see if medication may help with better urine flow. 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 Current occupational exposures/hazards: No Cognitive needs: No Hearing needs: No Vision needs: No Female Reproductive History Menstrual Age of Menarche: 10 Review of Systems Const All systems reviewed & are unremarkable except as noted in HPI and below Reports no additional complaints Eyes Reports no additional complaints ENT Reports no additional complaints Card Reports no additional complaints Resp Reports no additional complaints GI Reports no additional complaints Reports as per HPI Musc Reports no additional complaints Skin/Breast Reports system reviewed and no additional complaints, except as documented Neuro Reports no additional complaints Psych Reports no additional complaints Endo Reports no additional complaints Chato/Lymph Reports no additional complaints Aller/Immun Reports no additional complaints Telehealth Telehealth Telehealth Platform: [facility] Location of provider rendering services: practice address Location of patient: address on file Patient Identification confirmed using: Name, : Yes Telehealth method: voice only Patient verbally consented to treatment: Yes Patient verbally consented to billing insurance company: Yes Patient informed of any privacy concerns related to visit: Yes Minutes spent on Phone/Video with Pt.: 13 Assessment & Plan Assessment & Plan (1) Urethral disorders in diseases classified elsewhere: Code(s): N37 - Urethral disorders in diseases classified elsewhere Category: Medical (2) Dyspareunia due to medical condition in female: Code(s): N94.19 - Other specified dyspareunia Category: Medical Plan Plan 1. Urethral Cystic Mass - Patient to take pyridium as needed for burning sensations. - Follow up with urogynecology referral. Scribe Plan - Not visible on output: Patient was informed and verbally consented to the use of an ambient scribe for clinic note documentation during this visit. Coding Level of Care Code Tele [facility] Pt Level 3 (53642) Complex EM visit Add On G2211 Diagnoses Urethral disorders in diseases classified elsewhere N37 Dyspareunia due to medical condition in female N94.19
--- OUTSIDE RECORDS SUMMARY | 2025-08-21 10:44 | XMS_ITS | Clinical Summary ---
Author Organization [facility] Address [address] [place] [address] Care Team Providers Care Rn Document Improvement Specialist Name Role Phone Mis Tavarez PA-C Primary Care Provider [phone] Source Comments PLEASE NOTE, if this patient [...] sprayIndications:C hronic seasonal allergic rhinitis Place 1 Napoleon in both nostrils once daily 16 g [...] daily 90 Tablet 1 01/23/20 23 Active [id number] fum-folic ac-om3 [phone] mg-mcg-mg combo packIndications:Fa luis [...] Due Date Last Done Comments HPV Screening (self-collect) 1985 HPV Screening 1985 Imm-Hepatitis B (1 of [...] 01/17/2023, 10/19 Depression Annual Screen 11/05/2024 01/17/2023 [id number] ( season) 2025 Imm-Influenza (#1) 2025 10/19/2022, 09/16/2012 Diabetes Screening 01/17/2026 01/17/2023, 0 11/18/2021, 11/18/2021 Hypertension Screening (#1) 01/22/2026 Pap Smear 01/23/2026 01/23/2023 Cervical Cancer Screening 01/24/2028 Pap + HPV 01/24/2028 01/23/2023 HIV Screening Completed 01/17/2023 Hepatitis C Screening Completed 01/17/2023 Syphilis Screening Discontinued 01/17/2023 Cervical Ablation/Cold-Knife Conization Discontinued Cervical Cryotherapy Discontinued Colposcopy Discontinued Excision/Leep Discontinued HPV Genotyping Discontinued Vaginal [...] TRACHOMATIS RNA, TMA NOT DETECTED NOT DETECTED [facility] NEISSERIA GONORRHOEAE RNA, TMA NOT DETECTED NOT DETECTED [facility] COMMENT [facility] CLINICAL INFORMATION See Note [facility] Comment:Routine exam LMP See Note [facility] Comment:[id number] PREV. PAP See Note [facility] Comment:NONE GIVEN PREV. BX See Note [facility] Comment:NONE GIVEN SOURCE See Note [facility] Comment:Cervix STATEMENT OF ADEQUACY See Note [facility] Comment: Satisfactory for evaluation. Endocervical/transformation zone component absent. INTERPRETATION/RESU LT See Note [facility] Comment:Negative for intraep ithelial lesion or malignancy. INFECTION See Note [facility] Comment: Bacteria morphologically consistent with Actinomyces spp. REPEATER CHIEF See Note [facility] Comment: KF, CT(ASCP) CT screening location: [place] [address] COMMENT [facility] HPV MRNA E6/E7 Not Detected Not Detected [facility] Comment: Methodology: Api Product Manager-Mediated Amplification This assay detects E6/E7 viral messenger RNA (mRNA) from 14 high-risk HPV types (16,18,31,33,35,39,45,51,52,56,58,59,66,68). Cervical sources are required for HPV testing. If a vaginal source from a patient who has had a total hysterectomy with removal of cervix was submitted, please contact the testing laboratory for alternative testing options. For additional information, please refer to http://education.toucanBox/faq/OCO227g7 (This link if provided for information/ educational purposes only.) CYTOLOGY Cervix uteri structure / Unknown 01/23/2023 1:54 PM EDT 01/24/2023 1:34 AM EDT Narrative [facility] - 01/25/2023 4:02 PM EDT EXPLANATORY [...] test SurePath(TM) specimens have been determined by [facility]. The modifications have not been cleared or approved by the FDA. This assay has been validated pursuant to the CLIA regulations and is used for clinical purposes. For additional information, please refer to https://[employer].toucanBox/faq/VCE901 (This link is being provided for information/ educational purposes only.) Sabrina Obrien MD LAB - PATHOLOGY AND CYTOLOGY AMB ULATORY Final Result Performing Organization Address [facility] Co de Phone Number [facility] [address] [address], [facility] [address] [address] * Hep C Ab w/Rflx (01/17/2023 10:32 AM EDT) Pathologist [facility] HEPATITIS C ANTIBODY NON-REACT JAIME NON-REACT JAIME [facility] SIGNAL TO CUT-OFF 0.02 <1.00 [facility] Comment: HCV antibody was non-reactive. There is no laboratory evidence of HCV infection. In most cases, no further action is required. However, if recent HCV exposure is suspected, a test for HCV RNA (test code 60118) is suggested. For additional information please refer to http://Centrify.toucanBox/faq/DME91d8 (This link is being provided for informational/ educational purposes only.) Blood Blood / Unknown 01/17/2023 1 0:32 AM EDT 01/17/2023 10:35 AM EDT Narrative [facility] - 01/24/2023 8:13 PM EDT FASTING:YES Mis Tavarez PA-C LAB - BLOOD DRAW Edited Resu lt - Final Performing Organization Address [facility] Co de Phone Number [facility] [address] [address], [facility] [address] [address] * HIV Screen (01/17/2023 10:32 AM EDT) [facility] HIV AG/AB, 4TH GEN NON-REAC TIVE NON-REAC TIVE [facility] Comment: HIV-1 antigen and HIV-1/HIV-2 antibodies were [...] purpose. For additional information please refer to http://Centrify.toucanBox/faq/BDR633 (This link is being provided for informational/ educational purposes only.) The performance of this assay has not been clinically validated in patients less than 2 years old. Blood Blood / Unknown 01/17/2023 1 0:32 AM EDT 01/17/2023 10:35 AM EDT Narrative [facility] - 01/24/2023 8:13 PM EDT FASTING:YES us Mis Tavarez PA-C LAB - BLOOD DRAW Final Resul t Performing Organization Address [facility] Co de Phone Number [facility] [address] [address], [facility] [address] [address] * (ABNORMAL) Thyroid cascading reflex panel (01/17/2023 10:32 AM EDT) TSH 36.97(H) 0.40 - 4.50 mIU/L [facility] Comment: Reference Range > or = 20 Years 0.40-4.50 Ranges First trimester 0.26-2.66 Second trimester 0.55-2.73 Third trimester 0.43-2.91 Blood Blood / Unknown 01/17/2023 1 0:32 AM EDT 01/17/2023 10:35 AM EDT Narrative [facility] - 01/24/2023 8:13 PM EDT FASTING:YES us Mis CANNON-Janice LAB - BLOOD DRAW Edited Resu lt - Final Performing Organization Address City/[facility]/ZIP Co de Phone Number [facility] [address] [address], [employer] [address] [place] [address] * RPR W/RFLX TITER+FTA+CONF (01/17/2023 10:32 AM EDT) Pathologist [facility] RPR (DX) W/REFL TITER AND CONFIRMATORY TESTING NON-REACT JAIME NON-REACT JAIME [facility] Blood Blood / Unknown 01/17/2023 1 0:32 AM EDT 01/17/2023 10:35 AM EDT Narrative [facility] - 01/24/2023 8:13 PM EDT FASTING:YES us Mis Tavarez PA-C LAB - BLOOD DRAW Edited Resu lt - Final [facility] [address] [address], [facility] [address] [place] [address] * CMP (01/17/2023 10:32 AM EDT) [facility] GLUCOSE 94 65 - 99 mg/dL [facility] Comment: Fasting reference interval UREA NITROGEN (BUN) 25 7 - 25 mg/dL [facility] CREATININE (blood) 0.72 0.50 - 0.97 mg/dL [facility] EGFR 110 > OR = 60 mL/min/1 .73m2 [facility] Comment: The eGFR is based on the CKD-EPI 2020 equation. To calculate the new eGFR from a previous Creatinine or Cystatin C result, go to https://www.kidney.org/professionals/ kdoqi/gfr%5Fcalculator BUN/CREATININE RATIO NOT APPLICABLE 6 - 22 [facility] SODIUM 138 135 - 146 mmol/L [facility] POTASSIUM 4.2 3.5 - 5.3 mmol/L [facility] CHLORIDE 106 98 - 110 mmol/L [facility] CARBON DIOXIDE 25 20 - 32 mmol/L [facility] CALCIUM 9.6 8.6 - 10.2 mg/dL [facility] PROTEIN, TOTAL 7.4 6.1 - 8.1 g/dL [facility] ALBUMIN 4.6 3.6 - 5.1 g/dL [facility] GLOBULIN 2.8 1.9 - 3.7 g/dL (calc) [facility] ALBUMIN/GLOBUL IN RATIO 1.6 1.0 - 2.5 (calc) [facility] BILIRUBIN, TOTAL 0.3 0.2 - 1.2 mg/dL [facility] ALKALINE PHOSPHATASE 53 31 - 125 U/L [facility] AST 14 10 - 30 U/L [facility] ALT 13 6 - 29 U/L [facility] Blood Blood / Unknown 01/17/2023 1 0:32 AM EDT 01/17/2023 10:35 AM EDT Narrative [facility] - 01/24/2023 8:13 PM EDT FASTING:YES us Mis Tavarez PA-C LAB - BLOOD DRAW Edited Resu lt - Final [facility] [address] [address], [facility] [address] [address] from Last 3 Months or Most Recently Relevant to Health Maintenance Insurance [address] [employer] Care Teams Rn Document Improvement Specialist Relationship Specialty Start Date End Date Mis Tavarez PA-C [address] [place] [address] PCP - General [facility] 03/28/22
== END 2025-08-21 16:27 | disposition home or self-care (01) ==
LOC: HO.HUSH 09:32
PROVIDERS: PCP Physician Assistant; Visit Provider Urology
DX: N94.19 Other specified dyspareunia (principal); N37 Urethral disorders in diseases classified elsewhere
CPT/HCPCS: 99213

== ENCOUNTER → 2025-08-21 09:31 | Outpatient (BNVA) | payer OTHER, SELFPAY | PROVIDERS: PCP Physician Assistant; Visit Provider Urology | DX: R30.0 Dysuria (principal); N37 Urethral disorders in diseases classified elsewhere; N94.19 Other specified dyspareunia | CPT/HCPCS: 99212 ==